=== PATIENT | female | born 1955 | race Caucasian/White ===

== ENCOUNTER 2019-05-27 01:15 | Day surgery (SDC) | payer MEDICARE, SELFPAY ==
[2019-05-22 14:14] VITALS: BMI 29.4
--- NOTE | 2019-05-27 09:21 | WPDANESEPPF ---
Anes - Initial Pre Proc Eval Procedure: Operation Date: 05/27/19 10:00 Proposed Procedures p Esophagogastroduodenoscopy - Kyle Steele MD Date/Time: 05/27/19 09:21 Surgeon: Kyle Steele MD Pre Op Diagnosis: Epigastric Pain Patient Data Age: 63 Gender: F Height: 5 ft 2 in Weight: 73 kg Allergies Allergy/AdvReac Type Severity Reaction Status Date / Time No Known Drug Allergies Allergy Unknown Verified 05/27/19 08:58 Home Medications Medication Instructions Recorded Confirmed Type acetaminophen-codeine 1 tablet PO PRN PRN 05/22/19 05/22/19 History betamethasone, augmented 1 applic TOPICAL DAILY 05/22/19 05/22/19 History celecoxib 100 mg PO DAILY 05/22/19 05/27/19 History cyclobenzaprine 5 mg PO DAILY 05/22/19 05/27/19 History famotidine 20 mg PO DAILY 05/22/19 05/27/19 History gabapentin 300 mg PO BID 05/22/19 05/27/19 History methocarbamol 750 mg PO PRN 05/22/19 05/22/19 History metoprolol tartrate 25 mg PO DAILY 05/22/19 05/27/19 History montelukast 10 mg PO DAILY 05/22/19 05/27/19 History nortriptyline 25 mg PO DAILY 05/22/19 05/27/19 History pantoprazole 40 mg PO BID 05/22/19 05/27/19 History pravastatin 20 mg PO DAILY 05/22/19 05/27/19 History spironolacton-hydrochlorothiaz 1 tablet PO DAILY 05/22/19 05/27/19 History Patient hx anesthesia problems: none Family hx anesthesia problems: none [facility] Past Medical History Medical History (Updated 05/27/19 @ 09:21 by Tommy aMrie MD) Anxiety CAD (coronary artery disease) CVA (cerebral vascular accident) Depression GERD (gastroesophageal reflux disease) Hyperlipidemia Hypertension IKER (obstructive sleep apnea) Anes - Eval Final PreProcedure Day of Procedure 05/27/19 09:21 Patient weight: overweight Heart: regular rate and rhythm Lungs: clear to auscultation Airway: Mallampati scale class III Neurological: alert and oriented Last oral intake: >/= 8 hours ASA classification: III Emergent: no Anesthetic plan: proceed Anesthesia type and monitoring: general GIVS and standard monitoring Informed Consent: The patient's anesthetic plan and its attendant risks and benefits were discussed with the patient/family/POA. Questions were solicited and answers provided to the satisfaction of the patient/family/POA.
[2019-05-27] MEDS: LACTATED RINGERS 1,000 ML 150 ML IV CONT ×2 (09:32→10:39)
[2019-05-27 09:34] VITALS: BP 129/60; PULSE 87; RESP 16; TEMP 36.1; O2SAT 99; BMI 29.6
--- NOTE | 2019-05-27 10:25 | P.CONGI_ITS ---
Assessment and Plan Additional Plan This is a 63-year-old white female patient seen in evaluation at the request of Dr. Chang. Patient complains of epigastric pain and heartburn. She notes pain predominantly in the epigastric area. Pain appears to worsen after eating. Described as heartburn. She states she was on Celebrex until about 2 weeks ago. She states the pain is typically worse after eating. Pain appears to improve on taking Pepto-Bismol. She also takes Protonix 40 mg p.o. daily for some time now. Past medical history is significant for CLL. She is also history of hypertension. Medications include spironolactone. Hydrochlorothiazide. Montelukast. Metoprolol. Escitalopram. Celecoxib. She has no stated drug allergies. Family history is noncontributory. Physical exam reveals her to be alert. Oriented x3. HEENT exam unremarkable. Lungs are clear to auscultation and to percussion. Heart is without murmur or extra sounds . Abdominal exam bowel sounds are present soft nontender with no hepatosplenomegaly. Digital external rectal exam normal. Impression 1. Epigastric pain. Suspicious for dyspepsia. Plan is to continue proton pump inhibitor. An EGD will be performed 2. CLL. This is chronic. No recent exacerbation noted. Patient is concerned because it was diagnosis after similar pain was a describes several years ago. 3. Hypertension. Plan is to continue proton pump inhibitor. Pepto-Bismol will be allowed. An EGD will be performed. GI Consult Note Consult date/time: 05/27/19 10:25 HPI: Nohemi Cornelius is a 63 year old female [facility] Past Medical History Medical History (Updated 05/27/19 @ 09:21 by Tommy Marie MD) Anxiety CAD (coronary artery disease) CVA (cerebral vascular accident) Depression GERD (gastroesophageal reflux disease) Hyperlipidemia Hypertension IKER (obstructive sleep apnea) Meds Home Medications and Allergies Home Medications Medication Instructions Recorded Confirmed Type acetaminophen-codeine 1 tablet PO PRN PRN 05/22/19 05/22/19 History betamethasone, augmented 1 applic TOPICAL DAILY 05/22/19 05/22/19 History celecoxib 100 mg PO DAILY 05/22/19 05/27/19 History cyclobenzaprine 5 mg PO DAILY 05/22/19 05/27/19 History famotidine 20 mg PO DAILY 05/22/19 05/27/19 History gabapentin 300 mg PO BID 05/22/19 05/27/19 History methocarbamol 750 mg PO PRN 05/22/19 05/22/19 History metoprolol tartrate 25 mg PO DAILY 05/22/19 05/27/19 History montelukast 10 mg PO DAILY 05/22/19 05/27/19 History nortriptyline 25 mg PO DAILY 05/22/19 05/27/19 History pantoprazole 40 mg PO BID 05/22/19 05/27/19 History pravastatin 20 mg PO DAILY 05/22/19 05/27/19 History spironolacton-hydrochlorothiaz 1 tablet PO DAILY 05/22/19 05/27/19 History Allergies Allergy/AdvReac Type Severity Reaction Status Date / Time No Known Drug Allergies Allergy Unknown Verified 05/27/19 08:58 Vital Signs Vital Signs - 24 hr 05/27/19 09:34 Temperature 36.1 C L Pulse Rate 87 Respiratory Rate 16 Blood Pressure 129/60 Pulse Oximetry 99
[2019-05-27 11:05] VITALS: BP 138/64; PULSE 85; RESP 23; O2SAT 100
[2019-05-27 11:15] VITALS: BP 153/72; PULSE 83; RESP 18; O2SAT 100
[2019-05-27 11:25] VITALS: BP 168/71; PULSE 83; RESP 21; O2SAT 100
== END 2019-05-27 11:44 | disposition home or self-care (01) ==
PROVIDERS: PCP Internal Medicine; Visit Provider Internal Medicine Gastroenterology
PROC: 0DJ08ZZ Inspection of Upper Intestinal Tract, Via Natural or Artificial Opening Endoscopic (ICD-10-PCS; CPT 43235; principal; 2019-05-27 10:00)
DX: T18.128A Food in esophagus causing other injury, initial encounter (principal); K21.9 Gastro-esophageal reflux disease without esophagitis; I10 Essential (primary) hypertension; C91.10 Chronic lymphocytic leukemia of B-cell type not having achieved remission; I25.10 Atherosclerotic heart disease of native coronary artery without angina pectoris; E78.5 Hyperlipidemia, unspecified; G47.33 Obstructive sleep apnea (adult) (pediatric); F41.8 Other specified anxiety disorders; Z86.73 Personal history of transient ischemic attack (TIA), and cerebral infarction without residual deficits
CPT/HCPCS: 43235; J2704; J7120

== ENCOUNTER 2019-06-03 10:17 | Outpatient (CLI) | payer MEDICARE, SELFPAY ==
[2019-06-03 10:33] LABS: Hemoglobin 11.6 g/dL (12.0-15.0); Mean Corpuscular HGB Conc 33.1 g/dL (32.0-36.0); Mean Corpuscular Hemoglobin 33.2 pg (27.0-31.0); Mean Corpuscular Volume 100.3 fL (78.0-102.0); Mean Platelet Volume 9.2 fl (9.2-11.8); Platelet Count Result 180 K/mm3 (150-420); Red Blood Count 3.49 M/mm3 (4.20-5.40); Red Cell Distribution Width 12.7 % (11.6-14.4); White Blood Count 9.8 K/mm3 (4.8-10.8)
[2019-06-03 11:17] LABS: Band Neutrophils Percent 0 % (0-6); Basophils Percent Manual 0 % (0-1); Eosinophils Percent Manual 0 % (1-6); Lymphocytes Absolute Manual 8.91 K/mm3 (1.1-4.5); Lymphocytes Percent Manual 91 % (18-44); Monocytes Absolute Manual 0.09 K/mm3 (0.1-0.90); Monocytes Percent Manual 1 % (3-9); Neutrophils Absolute Manual 0.78 K/mm3 (1.7-7.2); Neutrophils Percent Manual 8 % (46-73); Total Cells Counted 100
[2019-06-03 11:18] LABS: Platelet Estimate Adequate (Adequate)
[2019-06-03 11:41] LABS: Alanine Aminotransferase 13 U/L (14-59); Albumin Level 3.6 g/dL (3.4-5.0); Alkaline Phosphatase 56 U/L (46-116); Anion Gap 12.1 mmol/L (7-16); Aspartate Amino Transferase 11 U/L (15-37); Bilirubin,Total 0.2 mg/dL (0.00-1.00); Blood Urea Nitrogen 15 mg/dL (7-18); Calcium 8.8 mg/dL (8.5-10.1); Carbon Dioxide 32 mmol/L (21-32); Chloride 105 mmol/L (98-108); Cholesterol 174 mg/dL (0-200); Estimated Glomerular Filt Rate 56; Glucose 93 mg/dL (70-99); HDL Direct 38 mg/dL (40-60); LDL Cholesterol Calculated 119 mg/dL (<130); Osmolality Calculated 300 mOsm/kg (285-295); Potassium 4.1 mmol/L (3.5-5.1); Sodium 145 mmol/L (136-145); Thyroid Stimulating Hormone 1.65 uIU/mL (0.36-3.74); Total Protein 6.5 g/dL (6.4-8.2); Triglycerides 87 mg/dL (0-150)
[2019-06-05 11:28] LABS: Bilirubin Urine Negative (Negative); Blood Urine Negative (Negative); Color Urine Yellow (Yellow); Glucose Urine UA Negative (Negative); Ketones Urine Negative (Negative); Leukocyte Esterase Ur Negative LEU/UL (Negative); Nitrate Urine Negative (Negative); Protein Urine Negative (Negative); Specific Grav Ur 1.025 (1.010-1.020)
[2019-06-05 11:33] LABS: Add Urine Microscopic? NO; Appearance Urine Clear (Clear)
== END 2019-06-03 10:18 | disposition home or self-care (01) ==
LOC: CHSLAB 10:20
PROVIDERS: PCP Internal Medicine; Visit Provider Internal Medicine
DX: E78.5 Hyperlipidemia, unspecified (principal); I10 Essential (primary) hypertension; D64.9 Anemia, unspecified; Z98.84 Bariatric surgery status
CPT/HCPCS: 36415; 80053; 80061; 81003; 84443; 85025

== ENCOUNTER 2020-07-13 14:30 | Outpatient (CLI) | payer MEDICARE, SELFPAY ==
[2020-07-13 14:44] LABS: Hematocrit 35.9 % (35.0-42.0); Hemoglobin 11.9 g/dL (11.7-13.8); Immature Platelet Fraction Pct 5.4 % (1.0-7.0); Mean Corpuscular HGB Conc 33.1 g/dL (32.0-36.0); Mean Corpuscular Hemoglobin 32.1 pg (27.0-31.0); Mean Corpuscular Volume 96.8 fL (78.0-102.0); Mean Platelet Volume 10.3 fl (9.2-11.8); Platelet Count Result 71 K/mm3 (150-420); Red Blood Count 3.71 M/mm3 (4.20-5.40); Red Cell Distribution Width 13.7 % (11.6-14.4); White Blood Count 2.4 K/mm3 (4.8-10.8)
[2020-07-13 14:56] LABS: D Dimer 0.46 mg/L (0.19-0.50)
[2020-07-13 15:06] LABS: BNP < 5 pg/mL (0-100)
[2020-07-13 15:26] LABS: Alanine Aminotransferase 30 U/L (14-59); Albumin Level 3.7 g/dL (3.4-5.0); Alkaline Phosphatase 73 U/L (46-116); Anion Gap 5 mmol/L (8-16); Aspartate Amino Transferase 21 U/L (15-37); Bilirubin,Total 0.6 mg/dL (0.00-1.00); Blood Urea Nitrogen 25 mg/dL (7-18); Carbon Dioxide 31 mmol/L (21-32); Chloride 99 mmol/L (98-108); Creatine Kinase 76 U/L (26-192); Estimated Glomerular Filt Rate 36; Glucose 82 mg/dL (70-99); Osmolality Calculated 283 mOsm/kg (285-295); Potassium 4.2 mmol/L (3.5-5.1); Sodium 135 mmol/L (136-145); Thyroid Stimulating Hormone 3.12 uIU/mL (0.36-3.74); Total Protein 6.7 g/dL (6.4-8.2); Troponin I 13.5 ng/L (0.00-60.4)
[2020-07-13 16:01] LABS: Band Neutrophils Percent 0 % (0-6); Lymphocytes Absolute Manual 0.36 K/mm3 (1.1-4.5); Lymphocytes Percent Manual 15 % (18-44); Neutrophils Percent Manual 46 % (46-73); Total Cells Counted 100
[2020-07-13 16:02] LABS: Basophils Percent Manual 0 % (0-1); Eosinophils Absolute Manual 0.02 K/mm3 (0.02-0.5); Eosinophils Percent Manual 1 % (1-6); Monocytes Absolute Manual 0.91 K/mm3 (0.1-0.90); Monocytes Percent Manual 38 % (3-9); Platelet Estimate Decreased (Adequate)
== END 2020-07-13 14:31 | disposition home or self-care (01) ==
LOC: CHSLAB 14:32
PROVIDERS: PCP Internal Medicine; Visit Provider Internal Medicine
DX: R06.00 Dyspnea, unspecified (principal)
CPT/HCPCS: 36415; 80053; 82550; 82553; 83880; 84443; 84484; 85025; 85055; 85380

== ENCOUNTER 2020-07-19 10:11 | Outpatient (CLI) | payer MEDICARE, SELFPAY | END 2020-07-19 10:12 | disposition home or self-care (01) | LOC: CHSCARD 10:13 | PROVIDERS: PCP Internal Medicine; Visit Provider Internal Medicine | DX: R06.02 Shortness of breath (principal); I10 Essential (primary) hypertension | CPT/HCPCS: 94060; 94726; 94729 ==

== ENCOUNTER 2020-08-27 11:53 | Emergency (ER) | payer MEDICARE, SELFPAY ==
--- NOTE | ~2020-08-27 | CT_ITS ---
EXAMINATION: CT brain wo con EXAM DATE: 08/27/2020 13:30 INDICATION: Syncope dizziness and blurred vision x1wk. Dizziness, blurred vision, symptoms one week. Hand and foot paresthesias. TECHNIQUE: Spiral CT of the head was performed without contrast. Axial, coronal and sagittal images were reviewed. The dose-length product (DLP) for this examination was 529.67 mGy-cm. The exposure w as tailored according to patient size, and iterative reconstruction (ASIR) was used as additional dos e reduction technique. There is no prior study for comparison. FINDINGS: There is no acute intraparenchymal hemorrhage. No evidence of intraparenchymal brain mass lesion. No evidence of acute infarction. Please note that initial head CT has limited sensitivity f or small or acute infarctions. Right-sided choroidal fissure cyst. There is mild periventricular an d subcortical hypodensity, nonspecific but probably related to small vessel ischemic disease. There is mild prominence of the sulci and ventricles related to cerebral atrophy. There is intracranial carotid arteriosclerosis. There are no extra-axial collections. There is no mass effect or midline shift. The orbits are unremarkable. Soft tissue is unremarkable. The visualized sinuses and mastoi d air cells are well aerated. IMPRESSION: 1. No acute intracranial findings. 2. Chronic age related findings. Reviewed, dictated and finalized at location A.
[2020-08-27 12:10] VITALS: BP 155/64; PULSE 91; RESP 13; TEMP 36.8; O2SAT 98
--- NOTE | 2020-08-27 12:21 | ECG_ITS ---
Measurements Intervals [place] Rate: 88 P: 60 NV: 178 QRS: 11 QRSD: 97 T: 16 QT: 402 QTc: 488 Interpretive Statements SINUS RHYTHM BORDERLINE ST ABNORMALITY- ANTEROLAT/INF LEADS BASELINE ARTIFACT- I, II, III BORDERLINE ECG Electronically Signed On 08-27-2020 13:11:16 CDT by Devyn Osorio D.O.
[2020-08-27 13:13] LABS: Add Urine Microscopic? YES; Appearance Urine Clear (Clear); Bilirubin Urine Negative (Negative); Blood Urine Negative (Negative); Color Urine Yellow (Yellow); Glucose Urine UA Negative (Negative); Hematocrit 33.1 % (35.0-42.0); Hemoglobin 11.5 g/dL (11.7-13.8); Ketones Urine Trace (Negative); Leukocyte Esterase Ur Negative LEU/UL (Negative); Mean Corpuscular HGB Conc 34.7 g/dL (32.0-36.0); Mean Corpuscular Hemoglobin 32.9 pg (27.0-31.0); Mean Corpuscular Volume 94.6 fL (78.0-102.0); Mean Platelet Volume 10.4 fl (9.2-11.8); Nitrate Urine Negative (Negative); Platelet Count Result 101 K/mm3 (150-420); Protein Urine Negative (Negative); Red Cell Distribution Width 13.8 % (11.6-14.4); Urobilinogen Urine 0.2 mg/dL (0.2-1.0); White Blood Count 2.1 K/mm3 (4.8-10.8)
[2020-08-27 13:17] LABS: Bacteria Urine Trace /hpf; RBC Urine None seen /hpf (0-2); Squamous Epithelial Cell Urine Few /hpf (Few); WBC Urine 0-3 /hpf (0-3)
[2020-08-27 13:26] LABS: Partial Thromboplastin Time 25.2 SEC (23.90-30.70); Prothrombin Time 10.8 Seconds (9.50-12.10)
[2020-08-27 13:32] LABS: Band Neutrophils Percent 0 % (0-6); Lymphocytes Absolute Manual 0.63 K/mm3 (1.1-4.5); Lymphocytes Percent Manual 30 % (18-44); Monocytes Absolute Manual 0.56 K/mm3 (0.1-0.90); Monocytes Percent Manual 27 % (3-9); Myelocytes Percent 1 %; Neutrophils Absolute Manual 0.88 K/mm3 (1.7-7.2); Neutrophils Percent Manual 42 % (46-73); Platelet Estimate Adequate (Adequate); Total Cells Counted 100
[2020-08-27 13:42] LABS: Alanine Aminotransferase 24 U/L (14-59); Albumin Level 3.6 g/dL (3.4-5.0); Alkaline Phosphatase 82 U/L (46-116); Anion Gap 8 mmol/L (8-16); Aspartate Amino Transferase 18 U/L (15-37); Bilirubin,Total 0.7 mg/dL (0.00-1.00); Blood Urea Nitrogen 8 mg/dL (7-18); Carbon Dioxide 29 mmol/L (21-32); Chloride 103 mmol/L (98-108); Estimated Glomerular Filt Rate 51; Glucose 90 mg/dL (70-99); Magnesium 1.5 mg/dL (1.8-2.4); NT Pro B Type Natriuretic Pept 23 pg/mL (0-125); Osmolality Calculated 288 mOsm/kg (285-295); Potassium 3.1 mmol/L (3.5-5.1); Sodium 140 mmol/L (136-145); Troponin I 15.9 ng/L (0.00-60.4)
--- NOTE | 2020-08-27 14:38 | PC.NURSE ---
DR MARYAN ACEVES CALLED FOR CONSULT [phone]
--- NOTE | 2020-08-27 14:50 | ED.DIZZY ---
HPI - Dizziness General Chief Complaint: Dizziness Stated Complaint: dizziness, weakness, blurred vision since sunday Source: patient Mode of arrival: ambulatory Limitations: no limitations History of Present Illness HPI Narrative: Pt has been on a small vacation with her family this week. She had been doing pretty well (although she has been having to adjust her daily doses of chemo agents) until sunday. SHe siad she began to notice that her vision seemed blurry and her legs seemed weak. She thought the left was worse than the right. She also has had increased falling and imbalance. SHe thought she might have had a stroke on sunday. She didnt see a physcian bc she was on vacation. She is also nauseated and hasnt felt like eating much. SHe said she just feels terrible. MD elicited complaint: lightheadedness (worse on standing up) Pertinent past history: other (CLL- under chemo treatment) Timing: sudden onset (4 days ago) Description: room spinning , lightheadedness, off-balance and difficulty walking Exacerbating factors: movement/ambulation Relieving factors: nothing Associated symptoms: nausea, malaise and weakness Associated neuro symptoms: limb numbness and limb weakness Related Data Home Medications Medication Instructions Recorded Confirmed acetaminophen-codeine 1 tablet PO PRN PRN 05/22/19 08/27/20 betamethasone, augmented 1 applic TOPICAL DAILY 05/22/19 08/27/20 celecoxib 100 mg PO DAILY 05/22/19 08/27/20 cyclobenzaprine 5 mg PO DAILY 05/22/19 08/27/20 famotidine 20 mg PO DAILY 05/22/19 08/27/20 gabapentin 300 mg PO BID 05/22/19 08/27/20 methocarbamol 750 mg PO PRN 05/22/19 08/27/20 metoprolol tartrate 25 mg PO DAILY 05/22/19 08/27/20 montelukast 10 mg PO DAILY 05/22/19 08/27/20 nortriptyline 25 mg PO DAILY 05/22/19 08/27/20 pantoprazole 40 mg PO BID 05/22/19 08/27/20 pravastatin 20 mg PO DAILY 05/22/19 08/27/20 spironolacton-hydrochlorothiaz 1 tablet PO DAILY 05/22/19 08/27/20 allopurinol 300 mg PO DAILY 08/27/20 08/27/20 escitalopram oxalate 20 mg PO DAILY 08/27/20 08/27/20 prochlorperazine maleate 10 mg PO PRN 08/27/20 08/27/20 propranolol 60 mg PO DAILY 08/27/20 08/27/20 sulfamethoxazole-trimethoprim 1 tablet PO DAILY 08/27/20 08/27/20 sumatriptan succinate 100 mg PO DAILY 08/27/20 08/27/20 tizanidine 2 mg PO DAILY 08/27/20 08/27/20 Allergies Allergy/AdvReac Type Severity Reaction Status Date / Time No Known Drug Allergies Allergy Unknown Verified 05/27/19 08:58 Review of Systems Review of Systems: All systems reviewed & are unremarkable except as noted in HPI and below Constitutional: Constitutional: Denies chills, Reports fatigue, Denies fever(s) and Reports weakness Eyes: Eyes: Reports no additional eye complaints ENT: Reports system reviewed and no additional complaints, except as documented and Reports dizziness Cardiovascular: Cardiovascular: Reports no additional cardiovascular complaints Respiratory: Respiratory: Reports no additional respiratory complaints Gastrointestinal: Gastrointestinal: Denies abdominal pain, Denies bloating, Denies constipation, Denies heartburn, Reports diarrhea, Reports nausea and Denies vomiting Genitourinary: Genitourinary: Reports no additional female genitourinary complaints Musculoskeletal: Musculoskeletal: Reports no additional musculoskeletal complaints Integumentary/Breasts: Skin/Breast: Reports system reviewed and no additional complaints, except as docu Neurologic: Denies confusion, Reports vertigo, Reports dizziness, Denies headache(s), Denies focal weakness, Reports numbness and Reports weakness Psychiatric: Psychiatric: Reports no additional psychiatric complaints Endocrine: Endocrine: Reports no additional endocrine complaints Hematologic/Lymphatic: Hematologic/Lymphatic: Reports no additional hematologic/lymphatic complaints Allergic/Immunologic: Allergic/Immunologic: Reports no additional allergic/immunologic complaints PMFSH Past Medical His
[2020-08-27 15:00] VITALS: BP 165/65; PULSE 85
[2020-08-27 15:02] VITALS: BP 168/69; PULSE 88
[2020-08-27 15:04] VITALS: BP 160/68; PULSE 94
[2020-08-27] MEDS: MAGNESIUM SULF 2 GM/WATER 50ML 2 GM/50 ML BAG IVPB (15:05)
[2020-08-27] MEDS: POTASSIUM CHLORIDE 20 MEQ TABLET 40 MEQ PO (15:11)
[2020-08-27 15:56] VITALS: BP 166/71; PULSE 80; RESP 14; O2SAT 99
== END 2020-08-27 15:57 | disposition home or self-care (01) ==
LOC: CHSED 11:55
PROVIDERS: Emergency Provider Emergency Medicine; PCP Internal Medicine
DX: R53.1 Weakness (principal); T50.905A Adverse effect of unspecified drugs, medicaments and biological substances, initial encounter; I25.10 Atherosclerotic heart disease of native coronary artery without angina pectoris; K21.9 Gastro-esophageal reflux disease without esophagitis; E78.5 Hyperlipidemia, unspecified; I10 Essential (primary) hypertension
CPT/HCPCS: 36415; 70450; 80053; 81001; 83735; 83880; 84484; 85025; 85610; 85730; 93005; 96365; 99283; 99284; A9270; J3475

== ENCOUNTER 2021-01-15 14:04 | Emergency (ER) | payer MEDICARE, SELFPAY ==
--- NOTE | ~2021-01-15 | XR_ITS ---
EXAMINATION: XR chest 1V portable DATE: 01/15/2021 15:11 INDICATION: Shortness of breath TECHNIQUE: frontal view of the chest was obtained. COMPARISON: Chest radiograph dated 10/17/2016 FINDINGS: Right internal jugular central venous port catheter with distal tip at the caudal superior vena cava. Adjustable gastric banding procedure at the epigastric region. Cholecystectomy clips in right upper quadrant. Lungs remain clear with no focal airspace opacities, pulmonary edema, pleural effusion or pneumothora x. The cardiomediastinal silhouette is normal with small left pericardial fat pad. Visualized bones a nd soft tissues are unremarkable. IMPRESSION: 1. No acute cardiopulmonary disease. Reviewed, dictated and finalized at location A.
[2021-01-15 14:22] VITALS: BP 157/65; PULSE 82; RESP 16; TEMP 39.1; O2SAT 99
[2021-01-15] MEDS: SODIUM CHLORIDE 0.9% IV 1,000 ML 999 ML IV CONT (14:35)
[2021-01-15] MEDS: ONDANSETRON INJ 4 MG/2 ML VIAL IV PUSH (14:36)
[2021-01-15] MEDS: ACETAMINOPHEN 500 MG TABLET 1000 MG PO (14:57)
[2021-01-15 15:02] LABS: Hematocrit 32.2 % (35.0-42.0); Hemoglobin 10.6 g/dL (11.7-13.8); Mean Corpuscular HGB Conc 32.9 g/dL (32.0-36.0); Mean Corpuscular Hemoglobin 31.6 pg (27.0-31.0); Mean Corpuscular Volume 96.1 fL (78.0-102.0); Mean Platelet Volume 10.1 fl (9.2-11.8); Platelet Count Result 67 K/mm3 (150-420); Red Blood Count 3.35 M/mm3 (4.20-5.40); Red Cell Distribution Width 14.1 % (11.6-14.4); White Blood Count 3.5 K/mm3 (4.8-10.8)
[2021-01-15 15:14] LABS: Influenza Control Valid (Valid)
[2021-01-15 15:19] LABS: Alanine Aminotransferase 24 U/L (14-59); Albumin Level 2.9 g/dL (3.4-5.0); Alkaline Phosphatase 126 U/L (46-116); Anion Gap 10 mmol/L (8-16); Aspartate Amino Transferase 16 U/L (15-37); Bilirubin,Total 0.7 mg/dL (0.00-1.00); Blood Urea Nitrogen 11 mg/dL (7-18); Calcium 8.3 mg/dL (8.5-10.1); Carbon Dioxide 28 mmol/L (21-32); Chloride 101 mmol/L (98-108); Estimated CRCL calculation 44 ml/min; Estimated Glomerular Filt Rate 51; Glucose 90 mg/dL (70-99); Osmolality Calculated 287 mOsm/kg (285-295); Potassium 3.7 mmol/L (3.5-5.1); Sodium 139 mmol/L (136-145); Total Protein 6.1 g/dL (6.4-8.2)
[2021-01-15 15:20] LABS: SARS-CoV-2 RNA PCR Negative (Negative)
[2021-01-15 15:22] LABS: Lactic Acid Reflex 1.1 mmol/L (0.4-2.0)
[2021-01-15 15:34] LABS: Platelet Estimate Decreased (Adequate); Total Cells Counted 100
[2021-01-15 15:35] LABS: Band Neutrophils Percent 0 % (0-6); Basophils Percent Manual 0 % (0-1); Eosinophils Absolute Manual 0.07 K/mm3 (0.02-0.5); Eosinophils Percent Manual 2 % (1-6); Lymphocytes Absolute Manual 0.42 K/mm3 (1.1-4.5); Lymphocytes Percent Manual 12 % (18-44); Monocytes Absolute Manual 0.63 K/mm3 (0.1-0.90); Monocytes Percent Manual 18 % (3-9); Neutrophils Absolute Manual 2.38 K/mm3 (1.7-7.2); Neutrophils Percent Manual 68 % (46-73)
[2021-01-15 15:45] VITALS: BP 153/58; PULSE 85; RESP 16; TEMP 38.3; O2SAT 97
--- NOTE | 2021-01-15 15:47 | PC.NURSE ---
UA obtained and taken to lab.
[2021-01-15 15:48] LABS: Add Urine Microscopic? YES; Appearance Urine Clear (Clear); Bilirubin Urine 1+ (Negative); Blood Urine 3+ (Negative); Color Urine Light Yellow (Yellow); Glucose Urine UA Negative (Negative); Ketones Urine Negative (Negative); Leukocyte Esterase Ur 3+ (Negative); Nitrate Urine Positive (Negative); Protein Urine 1+ (Negative); Specific Grav Ur 1.015 (1.010-1.020)
[2021-01-15 15:53] LABS: Bacteria Urine 1+ /hpf; Squamous Epithelial Cell Urine Few /hpf (Few); WBC Urine 31-50 /hpf (0-3)
--- NOTE | 2021-01-15 16:00 | ED.FEVER ---
HPI - Fever General Chief Complaint: Fever Stated Complaint: fever, chills, nausea, abd pain Source: patient and family History of Present Illness HPI Narrative: this is a 65-year-old female with a history of CLL is some being seen at the [facility] in [place], presents with fever with some slight nausea with no vomiting, has a history of hypertension but pressure is relatively stable O2 sats are stable her current vitals are stable the patient has no chest pain mild shortness of breath with no cough no audible wheezing no diarrhea constipation no abdominal pain. MD elicited complaint: fever Onset (ago): day(s) Measured temperature: 102 C Related Data Home Medications Medication Instructions Recorded Confirmed acetaminophen-codeine 1 tablet PO PRN PRN 05/22/19 08/27/20 betamethasone, augmented 1 applic TOPICAL DAILY 05/22/19 08/27/20 celecoxib 100 mg PO DAILY 05/22/19 08/27/20 cyclobenzaprine 5 mg PO DAILY 05/22/19 08/27/20 famotidine 20 mg PO DAILY 05/22/19 08/27/20 gabapentin 300 mg PO BID 05/22/19 08/27/20 methocarbamol 750 mg PO PRN 05/22/19 08/27/20 metoprolol tartrate 25 mg PO DAILY 05/22/19 08/27/20 montelukast 10 mg PO DAILY 05/22/19 08/27/20 nortriptyline 25 mg PO DAILY 05/22/19 08/27/20 pantoprazole 40 mg PO BID 05/22/19 08/27/20 pravastatin 20 mg PO DAILY 05/22/19 08/27/20 spironolacton-hydrochlorothiaz 1 tablet PO DAILY 05/22/19 08/27/20 allopurinol 300 mg PO DAILY 08/27/20 08/27/20 escitalopram oxalate 20 mg PO DAILY 08/27/20 08/27/20 prochlorperazine maleate 10 mg PO PRN 08/27/20 08/27/20 propranolol 60 mg PO DAILY 08/27/20 08/27/20 sulfamethoxazole-trimethoprim 1 tablet PO DAILY 08/27/20 08/27/20 sumatriptan succinate 100 mg PO DAILY 08/27/20 08/27/20 tizanidine 2 mg PO DAILY 08/27/20 08/27/20 Allergies Allergy/AdvReac Type Severity Reaction Status Date / Time No Known Drug Allergies Allergy Unknown NKA Verified 01/15/21 14:20 Review of Systems Review of Systems: All systems reviewed & are unremarkable except as noted in HPI and below PMFSH Past Medical History Medical History Anxiety CAD (coronary artery disease) CVA (cerebral vascular accident) Depression GERD (gastroesophageal reflux disease) Hyperlipidemia Hypertension IKER (obstructive sleep apnea) Social History Social History Smoking packs per day: 0 Smoking cigarettes per day: 0.0 Smoking status: Unknown if ever smoked Alcohol intake: never Substance use: never Gender identity (if verbalized by the patient): Female Exam Const: General: no acute distress and alert Orientation/consciousness: patient oriented x3 HENMT: Head: normal to inspection Eyes: Conjunctivae: conjunctivae normal Pupils: Equal, round and reactive pupils present EOM: EOMs intact bilaterally Neck: Neck: normal visual inspection Chest: Chest palpation & inspection: normal inspection of the chest Resp: Effort & Inspection: normal respiratory effort Auscultation: clear to auscultation bilaterally Cardio: Rate: regular rate Rhythm: regular rhythm GI: GI Palp: Yes Soft to palpation : General: Yes no CVA tenderness Urinary Catheter: Urinary Catheter: patent and draining Back/Spine/Pelvis: Back: no CVA tenderness Skin: General skin exam: normal color Rashes: no rashes Neuro: General: patient oriented x3 and moves all extremities Psych: Mental Status: mental status grossly normal 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 Vital Signs Vital signs: Vital Signs Temperature 39.1 C H 01/15/21 14:22 Pulse Rate 82 01/15/21 14:22 Respiratory Rate 16 01/15/21 14:22 Blood Pressure 157/65
[2021-01-15 16:45] VITALS: BP 144/55; PULSE 80; RESP 16; TEMP 37.5; O2SAT 96
== END 2021-01-15 16:50 | disposition home or self-care (01) ==
PROVIDERS: Emergency Provider Emergency Medicine; PCP Internal Medicine
DX: N30.00 Acute cystitis without hematuria (principal); Z20.822 Contact with and (suspected) exposure to COVID-19; I25.10 Atherosclerotic heart disease of native coronary artery without angina pectoris; Z86.73 Personal history of transient ischemic attack (TIA), and cerebral infarction without residual deficits; K21.9 Gastro-esophageal reflux disease without esophagitis; E78.5 Hyperlipidemia, unspecified; I10 Essential (primary) hypertension
CPT/HCPCS: 36415; 71045; 80053; 81001; 83605; 85025; 87040; 87147; 87186; 87804; 96361; 96365; 96375; 99283; 99284; C9803; J0696; J2405; J7030; U0003; U0005

== ENCOUNTER 2021-03-23 10:13 | Outpatient (CLI) | payer MEDICARE, SELFPAY ==
--- NOTE | ~2021-03-23 | MM_ITS ---
EXAMINATION: MM screening [place] BI w liliam HISTORY: Screening mammogram TECHNIQUE: Craniocaudal and mediolateral oblique 3-D tomosynthesis images were obtained and synthetic 2-D images were generated. CAD analysis was submitted and interpreted. COMPARISON: 08/25/2018, 05/07/2017, 03/08/2016 bilateral screening mammogram examinations BREAST PARENCHYMAL COMPOSITION: There are scattered areas of fibroglandular density. FINDINGS: Stable mild fibroglandular asymmetry and scattered bilateral benign calcifications. There i s no evidence of suspicious mass, calcification, or architectural distortion to suggest malignancy in either breast. There has been no suspicious interval change. IMPRESSION: 1. No mammographic evidence of malignancy. 2. Recommend routine screening mammography in one year. BI-RADS Category 2: Benign finding(s). Reviewed, dictated and finalized at location A. 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
--- NOTE | ~2021-03-23 | DEXA_ITS ---
Bone Density Report Name: ALICIA ARGUELLO Age: 65 Sex: Female Ethnicity: White Date of : 1955 Indication: postmenopausal; screening for osteoporosis; parental hip fracture; prior fracture; cancer; asthma or emphysema; hysterectomy; Referring Provider: Oseas, Liliam Morejon Study: Bone densitometry was performed. Exam Date: March 23, 2021 Accession number: [id number] Bone Density: Region BMD T-score Z-score Classification AP Spine(L1-L4) 1.056 0.1 2.0 Normal Femoral Neck (Left) 0.699 -1.3 0.3 Osteopenia Total Hip (Left) 0.938 0.0 1.3 Normal Femoral Neck (Right) 0.675 -1.6 0.0 Osteopenia Total Hip (Right) 0.863 -0.6 0.7 Normal Femoral Neck Mean 0.687 -1.5 0.1 Osteopenia Total Hip Mean 0.901 -0.3 1.0 Normal World Health Organization criteria for BMD impression classify patients as: Normal (T-score at or above -1.0), Osteopenia (T-score between -1.0 and -2.5), or Osteoporosis (T-score at or below -2.5). 10-year Fracture Risk(1): Major Osteoporotic Fracture 25% Hip Fracture 2.3% Reported Risk Factors: [place] (), Neck BMD=0.675, BMI=31.1, previous fracture, parental fracture (1) FRAX(R) Version 3.08. Fracture probability calculated for an untreated patient. Fracture probability may be lower if the patient has received treatment. Clinical Information Provided by Patient: Has had a low trauma fracture Parent has had a hip fracture Has used the following medications: Vitamin D, Calcium Has the following medical conditions: Asthma or Emphysema, Cancer, Hysterectomy Patient maximum height was 62 No regular weight bearing exercise Does not regularly consume dairy products Drinks caffeinated beverages Onset of menses at age 11 Number of children 0 Impression: The patient has low bone mass, based on the Right Femoral Neck T-score. The patient has risk factors, including: parental hip fracture, previous fracture. Discussion: BONE DENSITY IS LOW AT ONE OR MORE SKELETAL SITES. This patient's lowest T-score is low at one or more skeletal sites. It meets the World Health Organization's (WHO) criteria for ?low bone mass? (T-score between -1.0 and -2.5). The patient's 10-year risk of fracture as calculated by FRAX is less than the threshold where pharmacological therapy is recommended by the National Osteoporosis Foundation (NOF). However, all treatment decisions require clinical judgment and consideration of individual patient factors, including patient preferences, comorbidities, previous drug use, risk factors not captured in the FRAX model (e.g., frailty, falls, vitamin D deficiency, increased bone turnover, interval significant decline in bone density) and possible under or overestimation of fracture risk by FRAX. The patient should follow a healthful
== END 2021-03-23 10:14 | disposition home or self-care (01) ==
LOC: CHSIMG 10:14
PROVIDERS: PCP Internal Medicine; Visit Provider Nurse Practitioner Family
DX: Z12.31 Encounter for screening mammogram for malignant neoplasm of breast (principal); Z78.0 Asymptomatic menopausal state
CPT/HCPCS: 77063; 77067; 77080

== ENCOUNTER 2021-03-28 12:01 | Outpatient (CLI) | payer MEDICARE, SELFPAY ==
[2021-03-28 12:50] LABS: Occult Blood Negative (Negative)
[2021-03-28 12:50] LABS: Occult Blood Negative (Negative)
[2021-03-28 12:50] LABS: Occult Blood Negative (Negative)
== END 2021-03-28 12:02 | disposition home or self-care (01) ==
LOC: CHSLAB 12:04
PROVIDERS: PCP Internal Medicine; Visit Provider Nurse Practitioner Family
DX: R19.5 Other fecal abnormalities (principal)
CPT/HCPCS: 82272

== ENCOUNTER 2021-04-10 07:15 | Emergency (ER) | payer MEDICARE, SELFPAY ==
[2021-04-10 07:39] VITALS: BP 151/60; PULSE 88; RESP 18; TEMP 36.1; O2SAT 96
--- NOTE | 2021-04-10 07:47 | ED.GENADULT ---
HPI - General Adult General Chief complaint: Neck Pain/Injury Stated complaint: pain back of knees, neck, hands, head Source: patient and RN notes reviewed Mode of arrival: ambulatory Limitations: no limitations History of Present Illness HPI narrative: Patient states that she has been having neck pain multiple joint pain for the last 3 days. She went to see her doctor yesterday who restarted her Flexeril. She is already on gabapentin. She says the pain just getting worse. She says she has had some chills no fever that she notes. No other symptoms. MD complaint: Body aches, neck pain Onset (ago): day(s) (3) Location: neck, upper extremity and lower extremity Radiation: non-radiation Severity: moderate Quality: aching, dull and constant Relieving factors: none Exacerbating factors: movement Associated symptoms: fever/chills (chills) Treatments prior to arrival: none Related Data Home Medications Medication Instructions Recorded Confirmed acetaminophen-codeine 1 tablet PO PRN PRN 05/22/19 08/27/20 betamethasone, augmented 1 applic TOPICAL DAILY 05/22/19 08/27/20 celecoxib 100 mg PO DAILY 05/22/19 04/10/21 gabapentin 300 mg PO BID 05/22/19 04/10/21 montelukast 10 mg PO DAILY 05/22/19 04/10/21 nortriptyline 25 mg PO DAILY 05/22/19 04/10/21 pantoprazole 40 mg PO BID 05/22/19 04/10/21 spironolacton-hydrochlorothiaz 1 tablet PO DAILY 05/22/19 08/27/20 escitalopram oxalate 20 mg PO DAILY 08/27/20 04/10/21 propranolol 60 mg PO DAILY 08/27/20 04/10/21 sulfamethoxazole-trimethoprim 1 tablet PO DAILY 08/27/20 04/10/21 tizanidine 2 mg PO DAILY 08/27/20 04/10/21 acyclovir 400 mg PO DAILY 04/10/21 04/10/21 cyclobenzaprine 10 mg PO DAILY 04/10/21 04/10/21 lidocaine-prilocaine 04/10/21 Allergies Allergy/AdvReac Type Severity Reaction Status Date / Time No Known Drug Allergies Allergy Unknown NKA Verified 04/10/21 07:43 Review of Systems Review of Systems: All systems reviewed & are unremarkable except as noted in HPI and below PMFSH Past Medical History Medical History Anxiety CAD (coronary artery disease) CVA (cerebral vascular accident) Depression GERD (gastroesophageal reflux disease) Hyperlipidemia Hypertension IKER (obstructive sleep apnea) Social History Social History Smoking packs per day: 0 Smoking cigarettes per day: 0.0 Smoking status: Unknown if ever smoked Alcohol intake: never Substance use: never Gender identity (if verbalized by the patient): Female Exam Const: General: healthy appearing, no acute distress and alert Nutritional Appearance: well nourished Orientation/consciousness: patient oriented x3 HENMT: Head: normal to inspection Ears: external ears normal Eyes: Conjunctivae: conjunctivae normal Pupils: Equal, round and reactive pupils present EOM: EOMs intact bilaterally Neck: Neck: normal visual inspection and no meningeal signs Resp: Effort & Inspection: normal respiratory effort Auscultation: clear to auscultation bilaterally Cardio: Rate: regular rate Rhythm: regular rhythm GI: GI Palp: Yes Soft to palpation and No Tenderness to palpation present (GI) Auscultation: normal bowel sounds Course Vital Signs Vital signs: Vital Signs Temperature 36.1 C L 04/10/21 07:39 Pulse Rate 88 04/10/21 07:39 Respiratory Rate 18 04/10/21 07:39 Blood Pressure 151/60 H 04/10/21 07:39 Pulse Oximetry 96 04/10/21 07:39 Temperature 36.1 C L 04/10/21 07:39 Pulse Rate 88 04/10/21 07:39 Respiratory Rate 18 04/10/21 07:39 Blood Pressure 151/60 H 04/10/21 07:39 Pulse Oximetry 96 04/10/21 07:39 Medical Decision Making Vital Signs Vital Signs: Vital Signs Temperature 36.1 C L 04/10/21 07:39 Pulse Rate 88 04/10/21 07:39 Respiratory Rate 18 04/10/21 07:39 Blood Pressure 151/60 H 04/10/21 07:39 Pulse Oximetry 96 04/10/21 07:39
[2021-04-10] MEDS: KETOROLAC (*BKC) 60 MG/2 ML VIAL IM (07:59)
[2021-04-10 08:43] LABS: Influenza A QL RT-PCR Negative (Negative); Influenza B QL RT-PCR Negative (Negative); SARS-CoV-2 RNA PCR Negative (Negative)
== END 2021-04-10 09:21 | disposition home or self-care (01) ==
PROVIDERS: Emergency Provider Emergency Medicine; PCP Internal Medicine
DX: M79.7 Fibromyalgia (principal); Z20.822 Contact with and (suspected) exposure to COVID-19
CPT/HCPCS: 87502; 96372; 99283; C9803; J1885; U0003; U0005

== ENCOUNTER 2021-06-09 09:36 | Outpatient (CLI) | payer MEDICARE, SELFPAY ==
[2021-06-09 09:57] LABS: Basophils Absolute Auto 0.02 K/mm3 (0.00-0.10); Basophils Percent Auto 0.4 % (0.0-1.0); Eosinophils Absolute Auto 0.08 K/mm3 (0.02-0.50); Eosinophils Percent Auto 1.8 % (1.0-6.0); Hematocrit 37.3 % (35.0-42.0); Hemoglobin 11.8 g/dL (11.7-13.8); Immature Granulocyte Absolute 0.06 K/mm3 (0.00-0.00); Immature Granulocyte Percent A 1.3 % (0.0-0.0); Lymphocytes Absolute Auto 0.96 K/mm3 (1.10-4.50); Lymphocytes Percent Auto 21.1 % (18.0-42.0); Mean Corpuscular HGB Conc 31.6 g/dL (32.0-36.0); Mean Corpuscular Hemoglobin 31.1 pg (27.0-31.0); Mean Corpuscular Volume 98.2 fL (78.0-102.0); Mean Platelet Volume 9.5 fl (9.2-11.8); Monocytes Absolute Auto 0.55 K/mm3 (0.10-0.90); Monocytes Percent Auto 12.1 % (2.0-11.0); Neutrophils Absolute Auto 2.9 K/mm3 (1.7-7.2); Neutrophils Percent Auto 63.3 % (50.0-70.0); Platelet Count Result 119 K/mm3 (150-420); Red Cell Distribution Width 13.8 % (11.6-14.4); White Blood Count 4.5 K/mm3 (4.8-10.8)
[2021-06-09 10:21] LABS: Add Urine Microscopic? YES; Appearance Urine Clear (Clear); Bilirubin Urine 1+ (Negative); Blood Urine Negative (Negative); Color Urine Yellow (Yellow); Glucose Urine UA Negative (Negative); Ketones Urine Negative (Negative); Leukocyte Esterase Ur Negative LEU/UL (Negative); Nitrate Urine Negative (Negative); Protein Urine Trace (Negative); Specific Grav Ur >= 1.030 (1.010-1.020); pH Urine 5.5 (5.0-8.0)
[2021-06-09 10:32] LABS: RBC Urine None seen /hpf (0-2)
[2021-06-09 10:33] LABS: Bacteria Urine Trace /hpf; Squamous Epithelial Cell Urine Few /hpf (Few); WBC Urine None seen /hpf (0-3)
[2021-06-09 11:49] LABS: Alanine Aminotransferase 15 U/L (14-59); Albumin Level 3.7 g/dL (3.4-5.0); Alkaline Phosphatase 94 U/L (46-116); Anion Gap 13 mmol/L (8-16); Aspartate Amino Transferase < 10 U/L (15-37); Bilirubin,Total 0.3 mg/dL (0.00-1.00); Blood Urea Nitrogen 13 mg/dL (7-18); Calcium 8.6 mg/dL (8.5-10.1); Carbon Dioxide 26 mmol/L (21-32); Chloride 107 mmol/L (98-108); Cholesterol 265 mg/dL (0-200); Estimated Glomerular Filt Rate 51; Free T4 Free Thyroxine 0.82 ng/dL (0.76-1.46); Glucose 98 mg/dL (70-99); HDL Direct 60 mg/dL (40-60); LDL Cholesterol Calculated 180 mg/dL (<130); Osmolality Calculated 302 mOsm/kg (285-295); Potassium 3.7 mmol/L (3.5-5.1); Sodium 146 mmol/L (136-145); Thyroid Stimulating Hormone 4.42 uIU/mL (0.36-3.74); Total Protein 5.9 g/dL (6.4-8.2); Triglycerides 127 mg/dL (0-150)
[2021-06-11 15:14] LABS: Vitamin D 25 Hydroxy 25 ng/mL (30-100)
== END 2021-06-09 09:37 | disposition home or self-care (01) ==
LOC: CHSLAB 09:40
PROVIDERS: PCP Internal Medicine; Visit Provider Nurse Practitioner Family
DX: C91.10 Chronic lymphocytic leukemia of B-cell type not having achieved remission (principal); K76.9 Liver disease, unspecified; E78.5 Hyperlipidemia, unspecified; F34.9 Persistent mood [affective] disorder, unspecified; E87.6 Hypokalemia; M85.859 Other specified disorders of bone density and structure, unspecified thigh
CPT/HCPCS: 36415; 80053; 80061; 81001; 82306; 84439; 84443; 85025

== ENCOUNTER 2021-09-13 13:34 | Outpatient (CLI) | payer MEDICARE, SELFPAY ==
--- NOTE | 2021-09-13 13:50 | PC.NURSE ---
Pt to room 211 amb with spouse. Plan of care explained. Consent signed. Pt without questions or complaints. Oriented to room. Call kay in reach. Reminded to call with needs.
[2021-09-13] MEDS: ACETAMINOPHEN 325 MG TABLET 650 MG PO (14:25)
[2021-09-13] MEDS: diphenhydrAMINE HCl CAP 25 MG CAPSULE PO (14:25)
[2021-09-13] MEDS: FAMOTIDINE 20 MG TABLET PO (14:26)
[2021-09-13] MEDS: BEBTELOVIMAB 175 MG/2 ML VIAL IV PUSH (14:26)
--- NOTE | 2021-09-13 14:59 | PC.NURSE ---
Pt tolerated medication well. Has no complaints. Discharged to home with spouse.
== END 2021-09-13 13:35 | disposition home or self-care (01) ==
LOC: CHSTREATRM 13:38
PROVIDERS: PCP Internal Medicine; Visit Provider Internal Medicine
DX: U07.1 COVID-19 (principal); I10 Essential (primary) hypertension
CPT/HCPCS: A9270; M0222; Q0222

== ENCOUNTER 2021-09-22 17:17 | Outpatient (CLI) | payer MEDICARE, SELFPAY ==
--- NOTE | ~2021-09-22 | XR_ITS ---
XR chest 2V DATE: 09/22/2021 17:36 INDICATION: Cough, shortness of breath TECHNIQUE: PA and lateral views COMPARISON: 01/15/2021 portable AP chest FINDINGS: Right Port-A-Cath catheter tip the right atrium. Normal heart size. Aortic arch calcificati on. No hilar or mediastinal enlargement. No pulmonary infiltrate or consolidation, pleural effusion or pulmonary vascular congestion or pneumo thorax. Lap band apparatus is noted. Status post cholecystectomy. No suspicious osteolytic or osteoblastic lesions. IMPRESSION: Right Port-A-Cath catheter in right atrium No active cardiopulmonary disease Lap band Status post cholecystectomy Reviewed, dictated and finalized at location A.
[2021-09-22 17:32] LABS: Basophils Absolute Auto 0.01 K/mm3 (0.00-0.10); Basophils Percent Auto 0.2 % (0.0-1.0); Eosinophils Absolute Auto 0.09 K/mm3 (0.02-0.50); Eosinophils Percent Auto 2.1 % (1.0-6.0); Hematocrit 35.8 % (35.0-42.0); Hemoglobin 11.8 g/dL (11.7-13.8); Immature Granulocyte Absolute 0.01 K/mm3 (0.00-0.00); Immature Granulocyte Percent A 0.2 % (0.0-0.0); Lymphocytes Absolute Auto 1.13 K/mm3 (1.10-4.50); Lymphocytes Percent Auto 26.8 % (18.0-42.0); Mean Corpuscular Hemoglobin 31.6 pg (27.0-31.0); Mean Platelet Volume 9.2 fl (9.2-11.8); Monocytes Absolute Auto 0.46 K/mm3 (0.10-0.90); Monocytes Percent Auto 10.9 % (2.0-11.0); Neutrophils Absolute Auto 2.5 K/mm3 (1.7-7.2); Neutrophils Percent Auto 59.8 % (50.0-70.0); Platelet Count Result 148 K/mm3 (150-420); Red Blood Count 3.73 M/mm3 (4.20-5.40); Red Cell Distribution Width 13.2 % (11.6-14.4); White Blood Count 4.2 K/mm3 (4.8-10.8)
[2021-09-22 17:52] LABS: Alanine Aminotransferase 17 U/L (14-59); Albumin Level 3.8 g/dL (3.4-5.0); Alkaline Phosphatase 112 U/L (46-116); Anion Gap 6 mmol/L (8-16); Aspartate Amino Transferase 13 U/L (15-37); Bilirubin,Total 0.3 mg/dL (0.00-1.00); Blood Urea Nitrogen 11 mg/dL (7-18); Calcium 8.7 mg/dL (8.5-10.1); Carbon Dioxide 31 mmol/L (21-32); Chloride 105 mmol/L (98-108); Estimated Glomerular Filt Rate 55; Glucose 135 mg/dL (70-99); Osmolality Calculated 295 mOsm/kg (285-295); Potassium 3.6 mmol/L (3.5-5.1); Sodium 142 mmol/L (136-145); Total Protein 6.2 g/dL (6.4-8.2)
== END 2021-09-22 17:18 | disposition home or self-care (01) ==
LOC: CHSLAB 17:20
PROVIDERS: PCP Internal Medicine; Visit Provider Nurse Practitioner Family
DX: R05.9 Cough, unspecified (principal); J06.9 Acute upper respiratory infection, unspecified
CPT/HCPCS: 36415; 71046; 80053; 85025

== ENCOUNTER 2022-06-30 13:09 | Outpatient (CLI) | payer MEDICARE, SELFPAY ==
--- NOTE | ~2022-06-30 | MM_ITS ---
EXAMINATION: MM screening beverley BI w liliam HISTORY: Screening TECHNIQUE: Craniocaudal and mediolateral oblique 3-D tomosynthesis images were obtained and synthetic 2-D images were generated. CAD analysis was submitted and interpreted. COMPARISON: Comparison to multiple prior studies sequentially, with oldest reviewed study dated 09/19. BREAST PARENCHYMAL COMPOSITION: Breast composed of scattered areas of fibroglandular density FINDINGS: There is a new mass in the lower inner quadrant of the left breast. The right breast is sta ble without evidence for malignancy. IMPRESSION: 1. New left breast mass, lower inner quadrant. 2. Additional mammographic views and possible breast ultrasound are recommended. BI-RADS Category 0: Incomplete: Needs additional imaging evaluation. Reviewed, dictated and finalized at location A. IMPRESSION: 1. New left breast mass, lower inner quadrant. 2. Additional mammographic views and possible breast ultrasound are recommended . BI-RADS Category 0: Incomplete: Needs additional imaging evaluation.
== END 2022-06-30 13:10 | disposition home or self-care (01) ==
LOC: CHSIMG 13:12
PROVIDERS: PCP Internal Medicine; Visit Provider Internal Medicine
DX: Z12.31 Encounter for screening mammogram for malignant neoplasm of breast (principal); R92.8 Other abnormal and inconclusive findings on diagnostic imaging of breast
CPT/HCPCS: 77063; 77067

== ENCOUNTER 2022-07-07 09:07 | Outpatient (CLI) | payer MEDICARE, SELFPAY ==
--- NOTE | ~2022-07-07 | MMUS_ITS ---
EXAMINATION: MM diagnostic beverley LT w liliam, US breast LT limited HISTORY: Follow-up left breast mass TECHNIQUE: Additional 3-D tomosynthesis images of the left breast were performed and synthetic 2-D im ages were generated. CAD analysis was submitted and interpreted. High resolution Limited left breast ultrasound was performed. COMPARISON: 06/30/2022 BREAST PARENCHYMAL COMPOSITION: Breast composed of scattered areas of fibroglandular density FINDINGS: MAMMOGRAPHIC FINDINGS: There is a periareolar mass of the left breast medially. No suspicious calcifications or architectura l distortion. ULTRASOUND: Limited left breast ultrasound: And 9:00 in the periareolar location there is an antiparallel heterog eneous mass with posterior shadowing measuring 6 x 6 x 5 mm. IMPRESSION: 1. Abnormal 6 mm left breast mass at 9:00 in the periareolar location. 2. Ultrasound-guided left breast biopsy recommended. BI-RADS category 4, suspicious findings. Reviewed, dictated and finalized at location A. IMPRESSION: 1. Abnormal 6 mm left breast mass at 9:00 in the periareolar location. 2. Ultrasound-guided left breast biopsy recommended. BI-RADS category 4, suspicious findings.
== END 2022-07-07 09:08 | disposition home or self-care (01) ==
LOC: CHSIMG 09:08
PROVIDERS: PCP Internal Medicine; Visit Provider Internal Medicine
DX: R92.8 Other abnormal and inconclusive findings on diagnostic imaging of breast (principal)
CPT/HCPCS: 76642; 77061; 77065; G0279

== ENCOUNTER 2023-02-14 14:30 | Outpatient (CLI) | payer MEDICARE, SELFPAY ==
--- NOTE | ~2023-02-14 | XR_ITS ---
EXAMINATION: XR lumbar spine 2-3V DATE: 02/14/2023 15:00 INDICATION: Back pain. Right hip pain. Falls. TECHNIQUE: 3 views of lumbar spine were obtained. COMPARISON: None. FINDINGS: Bone alignment is normal. Vertebral body heights are normal. There is mildly decreased disc height at L5-S1. There are endplate osteophytes at multiple levels. There is multilevel mild to mode rate facet joint arthritis. Surgical clips in the right upper quadrant are likely from cholecystectom y. There is a lap band of the stomach in expected position. IMPRESSION: 1. Mild lumbar spondylosis. Reviewed, dictated and finalized at location E. SUPERVISOR IMPRESSION: 1. Mild lumbar spondylosis.
--- NOTE | ~2023-02-14 | XR_ITS ---
EXAMINATION: XR hip BI 2V w AP pelvis DATE: 02/14/2023 15:00 INDICATION: Bilateral hip pain. TECHNIQUE: An anteroposterior view of the pelvis and 2 views of each hip were obtained. COMPARISON: Left hip radiographs 01/21/2018 FINDINGS: Bone alignment is normal. No fracture. There is mild osteoarthritis of the hips. Osteitis p ubis is noted. IMPRESSION: 1. Mild osteoarthritis of the hips. Reviewed, dictated and finalized at location E. HETICIAN
[2023-02-14 15:10] LABS: Basophils Absolute Auto 0.03 K/mm3 (0.00-0.10); Basophils Percent Auto 0.5 % (0.0-1.0); Eosinophils Absolute Auto 0.09 K/mm3 (0.02-0.50); Eosinophils Percent Auto 1.6 % (1.0-6.0); Hematocrit 39.7 % (35.0-42.0); Hemoglobin 13.4 g/dL (11.7-13.8); Immature Granulocyte Absolute 0.02 K/mm3 (0.00-0.00); Immature Granulocyte Percent A 0.3 % (0.0-0.0); Lymphocytes Absolute Auto 1.52 K/mm3 (1.10-4.50); Lymphocytes Percent Auto 26.3 % (18.0-42.0); Mean Corpuscular HGB Conc 33.8 g/dL (32.0-36.0); Mean Corpuscular Hemoglobin 33.3 pg (27.0-31.0); Mean Corpuscular Volume 98.8 fL (78.0-102.0); Mean Platelet Volume 9.2 fl (9.2-11.8); Monocytes Absolute Auto 0.53 K/mm3 (0.10-0.90); Monocytes Percent Auto 9.2 % (2.0-11.0); Neutrophils Absolute Auto 3.6 K/mm3 (1.7-7.2); Neutrophils Percent Auto 62.1 % (50.0-70.0); Platelet Count Result 164 K/mm3 (150-420); Red Blood Count 4.02 M/mm3 (4.20-5.40); Red Cell Distribution Width 12.6 % (11.6-14.4); White Blood Count 5.8 K/mm3 (4.8-10.8)
[2023-02-14 15:24] LABS: Alanine Aminotransferase 21 U/L (14-59); Albumin Level 3.9 g/dL (3.4-5.0); Alkaline Phosphatase 104 U/L (46-116); Anion Gap 9 mmol/L (8-16); Bilirubin,Total 0.4 mg/dL (0.00-1.00); Blood Urea Nitrogen 13 mg/dL (7-18); Carbon Dioxide 32 mmol/L (21-32); Chloride 102 mmol/L (98-108); Estimated Glomerular Filt Rate 57; Glucose 93 mg/dL (70-99); Osmolality Calculated 296 mOsm/kg (285-295); Potassium 3.6 mmol/L (3.5-5.1); Sodium 143 mmol/L (136-145); Total Protein 6.1 g/dL (6.4-8.2); Uric Acid 5.2 mg/dL (2.6-6.0)
[2023-02-14 15:25] LABS: CRP < 0.5 mg/dL (0.0-0.9)
[2023-02-14 15:35] LABS: Aspartate Amino Transferase 12 U/L (15-37)
== END 2023-02-14 14:31 | disposition home or self-care (01) ==
LOC: CHSLAB 14:33
PROVIDERS: PCP Internal Medicine; Visit Provider Internal Medicine
DX: M25.552 Pain in left hip (principal); M25.551 Pain in right hip; M10.9 Gout, unspecified; M43.06 Spondylolysis, lumbar region; M16.0 Bilateral primary osteoarthritis of hip
CPT/HCPCS: 36415; 72100; 73521; 80053; 84550; 85025; 86140

== ENCOUNTER 2023-02-20 13:07 | Outpatient (RCR) | payer MEDICARE, SELFPAY ==
--- NOTE | 2023-02-20 14:41 | OPREHPOC ---
Outpatient Therapy Plan of Care This is a Multidisciplinary Plan of Care that may contain components documented by all disciplines (PT, OT, and ST.) PT Problem 1 PT Problem #1 Knowledge Deficit PT Goal 1 Goal Patient to report independence with HEP Target Visit 6 PT Problem 2 PT Problem #2 Pain PT Goal 1 Goal 1. Patient to report highest pain at 4/10 2. Patient to report ability to sit for >1 hour with no increase in pain Target Visit 12 PT Problem 3 PT Problem #3 Impaired Strength PT Goal 1 Goal Patient to demonstrate 4+/5 B LE strength to improve ability to ambulate prolonged periods of time to complete grocery shopping Target Visit 12 PT Problem 4 PT Problem #4 Impaired Flexibility PT Goal 1 Goal 1. Patient to demonstrate 20 deg of B HS flexibility to improve ability to stand for house hold tasks 2. Patient to demonstrate no tenderness to the L piriformis to improve sitting tolerance Target Visit 12 PT Problem 5 PT Problem #5 Impaired Functional Mobil PT Goal 1 Goal Patient to score 20% improvement on LEFS Target Visit 12
--- NOTE | 2023-02-20 14:41 | PTOPEVAL1 ---
Assessment and note entered by Emilee Baldwin DPT Evaluation Information Assessment Status Re-evaluation Diagnosis B hip pain, back pain Onset 02/15/23 Subjective Information Patient reports that she has fallen 4 times within the last month and on the last time she fell she has had increase hip pain since. She reports she loses her balance doing activity when she falls. She also reports she has poor circulation and neuropathy. She reports she has a long history of back and hip pain and has done PT in the past. She reports pain is worse with walking, sitting for long periods of time and standing to complete house hold tasks. She has had B hips and lumbar spine x-rays which showed mild arthrits. Reported Pain Level Pain Score 8,6,5: Self Report Assessment PT Clinical Summary Patient is a 67 year old female who presents to PT with low back and B hip pain. She demonstrates decreased B LE strength, decreased B LE flexibility and decreased lumbar mobility impairing her ability to sit for long periods of time, ambulate distances needed to grocery shop and stand for house hold tasks. She would benefit from skilled PT to address impairments and return to PLOF. Plan of Care Interventions Electrical Stimulation,Gait Training,Hot Pack/Cold Pack,Manual Therapy,Mechanical Traction,Neuro Re- education,Patient/Caregiver Educati,Therapeutic Activities,Therapeutic Exercise PT Services Indicated Yes Treatment Frequency and 2x weekly for 12 visits Duration These treatments will address the objective and functional deficits as defined above. The patient will be advanced safely and appropriately in order for the patient to progress towards his/her prior level of function. Additional exercises will be introduced and as well as a comprehensive home exercise program upon discharge, if needed, ?to ensure carryover of functional gains achieved in the clinic. This treatment plan has been reviewed and agreement upon by the patient.
--- NOTE | 2023-06-28 08:24 | PCPTNOTE ---
patient discharged due to length of time since previous PT visits.
== END 2023-03-13 20:00 | disposition home or self-care (01) ==
LOC: CHSPT 13:07
PROVIDERS: PCP Internal Medicine; Visit Provider Internal Medicine
DX: M25.551 Pain in right hip (principal); M25.552 Pain in left hip
CPT/HCPCS: 97014; 97110; 97140; 97150; 97161; G0283

== ENCOUNTER 2023-06-06 20:03 | Outpatient (CLI) | payer MEDICARE, SELFPAY ==
--- NOTE | 2023-06-26 13:29 | WPDSLEEPSTUD ---
Sleep Study Date of Study: 06/06/23 Ordering Provider: Nicanor Chang MD Interpreting Physician: Rachel Humphries MD Sleep Study Type: CPAP Titration Height: 1.55 m Weight: 75.977 kg Body Mass Index: 31.6 Neck Circumference (inches): 13.5 [place]arrison: 7 Reason for Sleep Study Obstructive sleep apnea, this is a repeat titration; she is being evaluated for Inspire, hypoglossal nerve stimulator as an alternative to PAP * 06/20/2018 CPAP titration at [facility]; The patient had been on CPAP for years at that point. She was titrated to a maximum of CPAP 16 cm pre correction of obstructive events, few central events remained. Sleep History Nohemi Cornelius is a 68-year-old woman with depression, hypertension, CLL who has a diagnosis of obstructive sleep apnea. She needs a repeat titration as part of her evaluation for Inspire, a hypoglossal nerve stimulator which is an alternative treatment to CPAP. It is not known if she wore her PAP up until the night of this study. She rarely awakens from sleep short of breath. She rarely wakes at night with heartburn, belching or coughing.??She occasionally snores loudly enough that others complain. She frequently sleep has trouble sleeping when she has a cold. She frequently wakes up gasping for breath during the night. She occasionally has breathing problems at night. She rarely sweats excessively at night. She occasionally notices her heart pounding or beating irregularly during the night. She rarelyfalls asleep during the day. She rarely falls asleep involuntarily, never falls asleep while driving. She never experiences loss of muscle tone with strong emotion. She never feels paralyzed on waking or falling asleep. She rarely experiences vivid dreams upon waking or falling asleep. She never feels afraid of going to sleep. She never has nightmares. She rarely recalls her dreams. She occasionally has thoughts racing through her mind. She rarely feels sad or depressed. She rarely feels anxiety. She frequently notices parts of her body jerk. She frequently kicks during the night. She rarely feels crawling or aching feelings in her legs. She frequently feels leg pain at night. She frequently has morning jaw pain, and frequently grinds her teeth at night. She frequently feels bothered by pain during the day, is frequently awakened by pain during the night. She frequently wakes up feeling stiff in the morning, frequently wakes feeling sore or achy in the morning. She frequently awakens with pain in her neck, spine, or joints. she has memory problems, headaches, fatigue and she takes antacids regularly. Normal bedtime is between 10:00 p.m. and 12 midnight, falling asleep within 20 minutes, waking 1-2 times during the night taking 15 minutes to return to sleep. These awakenings occur in the middle of the night. If she is not able to return to sleep easily, she watches television. Her normal wake time is between a.m. and 9:00 a.m.. She keeps the same schedule on weekends. She stays in bed for 2 hours after waking. Sometimes she takes naps in the afternoon or evening. A short nap lasting 10-15 minutes is not refreshing. She is usually drowsy for 2 hours after waking. She feels better in the evening compared to other times of day. Habits:??Tobacco: Former smoker, quit years ago Caffeine: 2 cups per day. Alcohol: 1 serving per day Recreational substances: none PMFSH Past Medical History Medical History (Updated 06/26/23 @ 14:21 by Rachel Humphries MD) Anxiety CAD (coronary artery disease) Chronic lymphocytic leukemia (CLL), B-cell CVA (cerebral vascular accident) Depression GERD (gastroesophageal reflux disease) Hyperlipidemia Hypertension IKER (obstructive sleep apnea) Surgical History Surgical History (Updated 06/26/23 @ 13:42 by Rachel Humphries MD) S/P hysterectomy age 23, endometriosis S/P left cataract extraction Family History Family History (Updated 06/26/23 @ 13:
[2023-06-26 14:27] VITALS: BMI 31.6
== END 2023-06-07 06:37 | disposition home or self-care (01) ==
LOC: CHSCSM 20:04
PROVIDERS: PCP Internal Medicine; Visit Provider Internal Medicine
DX: G47.33 Obstructive sleep apnea (adult) (pediatric) (principal)
CPT/HCPCS: 95811

== ENCOUNTER 2023-07-25 14:39 | Outpatient (CLI) | payer MEDICARE, SELFPAY ==
[2023-07-25 15:10] LABS: Basophils Absolute Auto 0.03 K/mm3 (0.00-0.10); Basophils Percent Auto 0.4 % (0.0-1.0); Eosinophils Absolute Auto 0.08 K/mm3 (0.02-0.50); Hematocrit 37.7 % (35.0-42.0); Hemoglobin 12.6 g/dL (11.7-13.8); Immature Granulocyte Absolute 0.06 K/mm3 (0.00-0.00); Immature Granulocyte Percent A 0.8 % (0.0-0.0); Lymphocytes Absolute Auto 1.29 K/mm3 (1.10-4.50); Lymphocytes Percent Auto 16.2 % (18.0-42.0); Mean Corpuscular HGB Conc 33.4 g/dL (32-36); Mean Corpuscular Hemoglobin 33.2 pg (27.0-31.0); Mean Corpuscular Volume 99.2 fL (78.0-102.0); Monocytes Absolute Auto 0.67 K/mm3 (0.10-0.90); Monocytes Percent Auto 8.4 % (2.0-11.0); Neutrophils Absolute Auto 5.81 K/mm3 (1.70-7.20); Neutrophils Percent Auto 73.2 % (50.0-70.0); Platelet Count Result 182 K/mm3 (150-420); Red Cell Distribution Width 12.2 % (11.6-14.4); White Blood Count 7.9 K/mm3 (4.8-10.8)
[2023-07-25 15:15] LABS: Appearance Urine Clear (Clear); Bilirubin Urine Negative (Negative); Blood Urine Negative (Negative); Color Urine Yellow (Yellow); Glucose Urine UA Negative (Negative); Ketones Urine Negative (Negative); Leukocyte Esterase Ur Negative (Negative); Nitrate Urine Negative (Negative); Protein Urine Negative (Negative); Specific Grav Ur 1.025 (1.010-1.020); pH Urine 5.5 (5.0-8.0)
[2023-07-25 15:23] LABS: Add Urine Microscopic? NO
[2023-07-25 15:34] LABS: Alanine Aminotransferase 25 U/L (14-59); Albumin Level 3.4 g/dL (3.4-5.0); Alkaline Phosphatase 85 U/L (46-116); Anion Gap 1 mmol/L (4-12); Aspartate Amino Transferase 14 U/L (15-37); Bilirubin,Total 0.4 mg/dL (0.00-1.00); Blood Urea Nitrogen 19 mg/dL (7-18); Calcium 8.6 mg/dL (8.5-10.1); Carbon Dioxide 36 mmol/L (21-32); Chloride 100 mmol/L (98-108); Cholesterol 264 mg/dL (0-200); Estimated Glomerular Filt Rate 60; Glucose 101 mg/dL (70-99); HDL Direct 58 mg/dL (40-60); LDL Cholesterol Calculated 176 mg/dL (<130); Osmolality Calculated 286 mOsm/kg (285-295); Sodium 137 mmol/L (136-145); Thyroid Stimulating Hormone 3.14 uIU/mL (0.36-3.74); Total Protein 5.8 g/dL (6.4-8.2); Triglycerides 149 mg/dL (0-150); Uric Acid 4.7 mg/dL (2.6-6.0)
[2023-07-25 15:36] LABS: CRP < 0.5 mg/dL (0.0-0.9)
== END 2023-07-25 14:40 | disposition home or self-care (01) ==
LOC: CHSLAB 14:41
PROVIDERS: PCP Internal Medicine; Visit Provider Internal Medicine
DX: I10 Essential (primary) hypertension (principal); G89.29 Other chronic pain; E78.5 Hyperlipidemia, unspecified; M10.9 Gout, unspecified
CPT/HCPCS: 36415; 80053; 80061; 81003; 84443; 84550; 85025; 86140

== ENCOUNTER 2024-03-26 14:30 | Outpatient (CLI) | payer MEDICARE, SELFPAY ==
--- NOTE | ~2024-03-26 | XR_ITS ---
EXAMINATION: XR chest 2V 03/26/2024 14:43 INDICATION: Cough with fever PROCEDURE: 2 view chest COMPARISON: Comparison to multiple prior studies sequentially, with oldest reviewed study dated 05/2020. FINDINGS: The lungs are clear. Central venous catheter tip near the cavoatrial junction. The cardiome diastinal silhouette is within normal limits. There are no pleural effusions. There is no pneumotho rax suspected. There are cholecystectomy clips. IMPRESSION: 1: NO ACUTE CARDIOPULMONARY DISEASE. Reviewed, dictated and finalized at location B. CIATE BROKER
== END 2024-03-26 14:31 | disposition home or self-care (01) ==
PROVIDERS: PCP Internal Medicine; Visit Provider Nurse Practitioner Family
DX: R05.9 Cough, unspecified (principal); R50.9 Fever, unspecified
CPT/HCPCS: 71046

== ENCOUNTER 2024-03-27 08:20 | Outpatient (CLI) | payer MEDICARE, SELFPAY ==
--- NOTE | 2024-04-16 19:41 | WPDSLEEPSTUD ---
Sleep Study Date of Study: 03/27/24 Ordering Provider: Ida Vieira Interpreting Physician: Eliza Fields DO Sleep Study Type: Split Polysomnogram Height: 1.57 m Weight: 78.925 kg Body Mass Index: 31.8 Neck Circumference (inches): 15 [place]: 7 Reason for Sleep Study Previously diagnosed IKER. Failed CPAP and mandibular advancement therapy. She is being evaluated as an Inspire candidate. Sleep History Nohemi Cornelius is a 68-year-old woman with depression, hypertension, CLL who has a diagnosis of obstructive sleep apnea. She needs a repeat titration as part of her evaluation for Inspire, a hypoglossal nerve stimulator which is an alternative treatment to CPAP. It is not known if she wore her PAP up until the night of this study. She rarely awakens from sleep short of breath. She rarely wakes at night with heartburn, belching or coughing.??She occasionally snores loudly enough that others complain. She frequently sleep has trouble sleeping when she has a cold. She frequently wakes up gasping for breath during the night. She occasionally has breathing problems at night. She rarely sweats excessively at night. She occasionally notices her heart pounding or beating irregularly during the night. She rarelyfalls asleep during the day. She rarely falls asleep involuntarily, never falls asleep while driving. She never experiences loss of muscle tone with strong emotion. She never feels paralyzed on waking or falling asleep. She rarely experiences vivid dreams upon waking or falling asleep. She never feels afraid of going to sleep. She never has nightmares. She rarely recalls her dreams. She occasionally has thoughts racing through her mind. She rarely feels sad or depressed. She rarely feels anxiety. She frequently notices parts of her body jerk. She frequently kicks during the night. She rarely feels crawling or aching feelings in her legs. She frequently feels leg pain at night. She frequently has morning jaw pain, and frequently grinds her teeth at night. She frequently feels bothered by pain during the day, is frequently awakened by pain during the night. She frequently wakes up feeling stiff in the morning, frequently wakes feeling sore or achy in the morning. She frequently awakens with pain in her neck, spine, or joints. she has memory problems, headaches, fatigue and she takes antacids regularly. Normal bedtime is between 10:00 p.m. and 12 midnight, falling asleep within 20 minutes, waking 1-2 times during the night taking 15 minutes to return to sleep. These awakenings occur in the middle of the night. If she is not able to return to sleep easily, she watches television. Her normal wake time is between a.m. and 9:00 a.m.. She keeps the same schedule on weekends. She stays in bed for 2 hours after waking. Sometimes she takes naps in the afternoon or evening. A short nap lasting 10-15 minutes is not refreshing. She is usually drowsy for 2 hours after waking. She feels better in the evening compared to other times of day. Habits:??Tobacco: Former smoker, quit years ago Caffeine: 2 cups per day. Alcohol: 1 serving per day Recreational substances: none PMFSH Past Medical History Medical History Chronic lymphocytic leukemia (CLL), B-cell Depression Anxiety GERD (gastroesophageal reflux disease) IKER (obstructive sleep apnea) Hypertension Hyperlipidemia CAD (coronary artery disease) CVA (cerebral vascular accident) Surgical History Surgical History S/P left cataract extraction S/P hysterectomy age 23, endometriosis Family History Family History Father Family history of leukemia Heart disease Diabetes mellitus Asbestosis Mother Heart disease Hypertension Hyperlipidemia Diabetes mellitus Cerebrovascular accident Sibling Emphysema of lung Multiple myeloma Social History Social History Social History: retired; Smoking packs per day: 0 Smoking cigarettes per day: 0.0 Smoking status: Former smoker Alcohol intake: never Substance use: never Living arrangements: with family Gender identity (if verbalized by the patient): Female Medications Home Medications ?Medication ?Instructions ?Recorded ?Confirmed ?Type acetaminophen 300 mg-codeine 60 mg 1 tablet PO PRN PRN Pain 05/22/19 08/27/20 History tablet betamethasone, augmented 0.05 % 1 applic topical DAILY 05/22/19 08/27/20 History lotion celecoxib 100 mg capsule 100 mg PO DAILY 05/22/19 04/10/21 History gabapentin 300 mg capsule 300 mg PO BID 05/22/19 04/10/21 History montelukast 10 mg tablet 10 mg PO DAILY 05/22/19 04/10/21 History nortriptyline 25 mg capsule 25 mg PO DAILY 05/22/19 04/10/21 History pantoprazole 40 mg tablet,delayed 40 mg PO BID 05/22/19 04/10/21 History release spironolactone 25 1 tablet PO DAILY 05/22/19 08/27/20 History mg-hydrochlorothiazide 25 mg tablet escitalopram oxalate 20 mg tablet 20 mg PO DAILY 08/27/20 04/10/21 History propranolol 60 mg capsule,24 60 mg PO DAILY 08/27/20 04/10/21 History hr,extended release sulfamethoxazole 800 1 tablet PO DAILY 08/27/20 04/10/21 History mg-trimethoprim 160 mg tablet tizanidine 2 mg tablet 2 mg PO DAILY 08/27/20 04/10/21 History acyclovir 400 mg tablet 400 mg PO DAILY 04/10/21 04/10/21 History cyclobenzaprine 10 mg tablet 10 mg PO DAILY 04/10/21 04/10/21 History lidocaine-prilocaine 2.5 %-2.5 % 04/10/21 History topical cream nabumetone 750 mg tablet 750 mg PO BID #20 tabs 04/10/21 Rx Sleep Procedure A full night split study using the [employer] multi-channel system recorded the standard physiologic parameters including EEG, EOG, submentalis EMG, anterior tibialis EMG, EKG, body position, nasal and oral airflow using nasal pressure sensor and thermistor.? Respiratory parameters of chest and abdominal movements were recorded with Respiratory Inductance Plethysmography belts. Oxygen saturation was recorded by pulse oximetry. Video monitoring was also performed. Sleep stages, periodic limb movements, and EEG arousals were scored in 30 second epochs according to the criteria of the AASM Scoring Manual. The Apnea-Hypopnea Index was calculated using [facility] guidelines for definition of hypopnea with 4% O2 desaturations while scoring respiratory events. Sleep Architecture During the diagnostic portion of the study, the total recording time was 162.4 minutes. The total sleep time was 141.5 minutes. Sleep latency was 8.9 minutes.? REM sleep was not achieved during this portion of the study. Sleep Efficiency was 87.1%. The patient had 8 awakenings for an awakening index of 3.4. Wake after sleep onset time was 12.0 minutes. The patient spent 18.5 minutes, 13.1% of total sleep time in Stage N1. The patient spent 82.5 minutes, 58.3% in Stage N2. The patient spent 40.5 minutes, 28.6% in Stage N3. The patient spent 0.0 minutes, 0.0% in Stage REM sleep. At 01:08:49 AM the patient was placed on PAP treatment and was titrated at pressures ranging from 5 cm H20 up to 15 cm H20. During the treatment portion of the study, the total recording time was 292.5 minutes.? The total sleep time was 272.0 minutes. Sleep latency was 8.5 minutes. REM latency was 116.0 minutes. Sleep Efficiency was 93.0%. Wake after Sleep Onset time was 12.5 minutes. The patient spent 27.5 minutes, 10.1% of total sleep time in Stage N1. The patient spent 224.5 minutes, 82.5% in Stage N2. The patient spent 0.0 minutes, 0.0% in Stage N3. The patient spent 20.0 minutes, 7.4% in Stage REM. Respiratory Analysis During the diagnostic portion of the study, the patient had 19 hypopneas, 13 obstructive apneas and 1 central apnea for an overall Apnea Hypopnea Index of 14.0 events per hour. The REM Apnea Hypopnea Index was 0. The NREM Apnea Hypopnea Index was 14.0. The patient had a Central Apnea Hypopnea Index of 0.4. There was no evidence of Nestor-Peterson Respirations. During the treatment portion of the study, the patient had 52 hypopneas for an overall Apnea Hypopnea Index of 11.5 events per hour. The REM Apnea Hypopnea Index was 36.0. The NREM Apnea Hypopnea Index was 9.5. The patient had a Central Apnea Hypopnea Index of 0. There was no evidence of Nestor-Peterson Respirations. The patient was started on CPAP 5 cm H2O and was titrated to CPAP 15 cm H2O. The patient was able to fall asleep starting on CPAP 5 cm H2O. The patient was able to achieve REM sleep starting on CPAP 7 cm H2O. The patient's sleep apnea resolved on the final pressure. On CPAP 15 cm H2O, the patient spent 28.5 minutes in NREM and 1 minute in REM with no respiratory events, resulting in an AHI of 0. The patient had a sleep efficiency of 88.1% on this pressure setting. Arousals During the diagnostic portion of the study, there were a total of 33 arousals for an arousal index of 14.0.? There were 6 respiratory arousals for an index of 2.5. There were 2 periodic limb movement arousals for an index of 0.8.? There were 5 isolated limb movement arousals for an index of 2.1. There were 20 spontaneous arousals for an index of 8.5. During the treatment portion of the study, there were a total of 55 arousals for an index of 12.1.? There were 16 respiratory arousals for an index of 3.5. There were 7 periodic limb movement arousals for an index of 1.5.? There were 2 isolated limb movement arousals for an index of 0.4. There were 29 spontaneous arousals for an index of 6.4. Periodic Limb Movements During the diagnostic portion of the study, the patient had 21 isolated limb movements with an index of 8.9. The patient had 11 periodic limb movements with an index of 4.7. The patient had a total of 32 limb movements with a total limb movement index of 13.6. During the treatment portion of the study, the patient had 23 isolated limb movements with an index of 5.1. The patient had 23 periodic limb movements with an index of 5.1. The patient had a total of 46 limb movements with a total limb movement index of 10.1. Oximetry Data During the diagnostic portion of the study, the patient had an average oxygen saturation of 95.1% in wake with a minimum oxygen saturation of 78% and a maximum oxygen saturation of 99%. The patient had an average oxygen saturation of 91.4% in sleep with a minimum oxygen saturation of 78.0% and a maximum oxygen saturation of 98.0%. The patient had 63 oxygen desaturations resulting in an Oxygen Desaturation Index of 26.7. The patient spent 13.5 minutes, 8.6% of total sleep time with an oxygen saturation less than 88%. During the treatment portion of the study, the patient had an average oxygen saturation of 92.4% in wake with a minimum oxygen saturation of 87.0% and a maximum oxygen saturation of 96.0%. The patient had an average oxygen saturation of 92.0% in sleep with a minimum oxygen saturation of 81.0% and a maximum oxygen saturation of 98.0%. The patient had 92 oxygen desaturations resulting in an Oxygen Desaturation Index of 20.3. The patient spent 7.2 minutes, 2.5% of total sleep time with an oxygen saturation less than 88%. Snoring Profile Mild snoring was present intermittently in the baseline portion of the study. The snoring resolved once the patient was titrated to 11 cm H2O. Cardiac Profile The EKG lead showed normal sinus rhythm. No arrhythmias or premature beats were seen. During the diagnostic portion of the study, the average pulse rate was 71.4 bpm.? The minimum pulse rate was 68.0 bpm. The maximum pulse rate was 79.0 bpm. During the treatment portion of the study, the average pulse rate was 65.2 bpm.? The minimum pulse rate was 60.0 bpm. The maximum pulse rate was 94.0 bpm. EEG Profile No signs of seizure activity seen. Assessment and Plan Assessment and Plan (1) IKER (obstructive sleep apnea): Code(s): G47.33 - Obstructive sleep apnea (adult) (pediatric) Status: Acute Assessment and Plan: In the diagnostic portion of the study, the patient had an overall AHI of 14.0 with desaturation down to78%. This is consistent with mild sleep apnea. The patient was started on CPAP 5 cm H2O and was titrated to CPAP 15 cm H2O. There were no findings in this study that would disqualify the patient from being considered as an Inspire candidate. Data The data obtained during this sleep study is adequate for interpretation. Certification This sleep study has been reviewed by a board certified sleep medicine physician.
[2024-04-18 18:06] VITALS: BMI 31.8
== END 2024-03-28 06:32 | disposition home or self-care (01) ==
LOC: ANHCSM 08:21
PROVIDERS: PCP Internal Medicine
DX: G47.33 Obstructive sleep apnea (adult) (pediatric) (principal)
CPT/HCPCS: 95811

== ENCOUNTER 2024-06-20 12:02 | Outpatient (CLI) | payer MEDICARE, SELFPAY ==
--- NOTE | ~2024-06-20 | MM_ITS ---
EXAMINATION: MM screening [facility] BI w liliam HISTORY: Screening mammogram TECHNIQUE: Craniocaudal and mediolateral oblique 3-D tomosynthesis images were obtained and synthetic 2-D images were generated. CAD analysis was submitted and interpreted. COMPARISON: 07/07/2022, 06/30/2022, 03/23/2021 BREAST PARENCHYMAL COMPOSITION:Not Dense. There are scattered areas of fibroglandular density. FINDINGS: No suspicious mass, calcification, or architectural distortion are identified in either madiha ast to suggest malignancy. There has been no suspicious interval change. IMPRESSION: No mammographic evidence of malignancy. Recommend routine screening mammography in one year. BI-RADS Category 1: Negative Reviewed, dictated and finalized at location .
--- OUTSIDE RECORDS SUMMARY | 2024-06-20 12:25 | XMS_ITS | Encounter Summary ---
Author Organization [facility] Healthcare Address [address] [place] [address] Care Team Providers Care Contact Clerk Name Role Phone Nicanor Chang MD Primary Care Provider [phone] Nicanor Chang MD Unavailable [phone] Reason for Visit * Diagnostic Imaging (Routine) - Closed Specialty Diagnoses / Procedures Referred By Contac t Referred To Contact Diagnoses Illness, unspecified Procedures Breast Imaging Screening Outside Reference Renetta Browne MD Phone: tel: fax: [facility] [address] [place] [address] Phone: tel: Referral ID Status Reason Start Date Expiration Date Visits Re quested Visits Authorized [id number] Closed 07/13/2022 08/12/2023 1 1 Encounter Details Date Type Department Care Team (Late st Contact Info) Description 08/15/2018 Hospital Encounter [facility] [address] [place] [id number] Social History Tobacco Use Types Packs/Day Years Used Date Smoking Tobacco: Former Cigarettes 1.5 15 0 11/08/1973 - 11/08/1988 Smokeless Tobacco: Never AUDIT-C Answer Date Recorded Q1: How often do you have a drink containing alc ohol? Monthly or less 02/19/2024 Q2: How many drinks containi ng alcohol do you have on a typical day when you are drinking? 1 or 2 02/19/2024 Q3: How often do you have si x or more drinks on one occasion? Never 02/19/2024 Personal Safety Answer Date Recorded Have you ever been in or are you currently in a harmful physical or emotional relationship or is someone making you feel afraid or unsafe? 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 Monthly or less 02/19/2024 6:59 AM Cecilia Hutchison RN Q2: How many drinks containing alcohol do you have on a typical day when you are drinking? 1 or 2 02/19/2024 6:59 AM Cecilia Hutchison RN Q3: How often do you have six or more drinks on one occasion? Never 02/19/2024 6:59 AM Cecilia Hutchison RN documented as of this encounter Plan of Treatment Not on file documented as of this encounter Procedures Procedure Name Priority Date/Time Associated Diagnosis Comments BREAST IMAGING MG SCREENING OUTSIDE REFERENCE Routine 08/15/2018 12:00 AM CDT documented in this encounter Results * Breast Imaging Screening Outside Reference (08/15/2018 12:00 AM CDT) Impressions RAD_M[facility]MO[facility] - 07/13/2022 5:36 PM CDT These images are for Reference purposes only and have not been reviewed by [facility]. There will be no report generated by a [facility]iologist. Narrative [facility]_MAMMO[facility] - 07/13/2022 5:36 PM CDT EXAMINATION: Images For Reference Purposes Only us Renetta Browne MD IMG MAMMO PROCEDURES Final Re sult [facility] documented in this encounter Visit Diagnoses Not on filedocumented in this encounter Additional Health Concerns Infection Onset Date Last Indicated Resolved Time COVID: Suspected 04/18/2021 04/18/2021 04/18/2021 8:34 PM SINGLE END SEWER COVID: Suspected 05/13/2021 05/13/2021 05/13/2021 3:50 PM SINGLE END SEWER documented as of this encounter Care Teams Contact Clerk Relationship Specialty Start Date End Date Nicanor Chang MD PCP - General 08/11/16 Nicanor Chang MD 08/11/16 documented as of this encounter
--- OUTSIDE RECORDS SUMMARY | 2024-06-20 12:25 | XMS_ITS | Encounter Summary ---
Author Organization [facility] Address [address] [facility] [address] [place] [address] Phone Care Team Providers Care Yarn Conditioner Name Role Phone Nicanor Chang MD Primary Care Provider [phone] Nicanor Chang MD Unavailable [phone] Renetta Browne MD Unavailable [phone] Encounter Details Date Type Department Care Team (Late st Contact Info) Description 06/19/2024 Documentation [facility] On[facility] Floor [address] [place] [id number] Dee Dee Bates RN Social History Tobacco Use Types Packs/Day Years [...] on file 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 documented in this encounter Plan of Treatment Not on file documented as of this encounter Visit Diagnoses Not on filedocumented in this encounter Care Teams Yarn Conditioner Relationship Specialty Start Date End Date Nicanor Chang MD PCP - General 08/11/16 Nicanor Chang MD 08/11/16 Renetta Browne MD Medical Oncologist/Engineering Tech Medical Oncology 06/02/20 documented as of this encounter
--- OUTSIDE RECORDS SUMMARY | 2024-06-20 12:25 | XMS_ITS | Encounter Summary ---
Author Organization [facility] Address [address] [facility] [address] [place] [address] Phone Care Team Providers Care Marble Installer Name Role Phone Nicanor Chang MD Primary Care Provider [phone] Nicanor Chang MD Unavailable [phone] Rneetta Browne MD Unavailable [phone] Encounter Details Date Type Department Care Team (Late st Contact Info) Description 03/07/2022 Telephone [facility] Oncology [address] [address] Chanelle Baird, B.A. Social History Tobacco Use Types Packs/Day Years Used Date Smoking Tobacco: Former Cigarettes 1.5 15 0 11/08/1973 - 11/08/1988 Smokeless Tobacco: Never AUDIT-C Answer Date Recorded Q1: How often do you have a drink containing alc ohol? Never 02/24/2021 Q2: How many drinks containi ng alcohol do you have on a typical day when you are drinking? 1 or 2 02/24/2021 Q3: How often do you have six or more drinks on one occasion? 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
--- OUTSIDE RECORDS SUMMARY | 2024-06-20 12:25 | XMS_ITS | Encounter Summary ---
Author Organization [facility] Address [address] [place] [address] Phone Care Team Providers Care Biodiesel Product Development Manager Name Role Phone Nicanor Chang MD Primary Care Provider [phone] Nicanor Chang MD Unavailable [phone] Renetta Browne MD Unavailable [phone] Encounter Details Date Type Department Care Team (Latest Contact Info) Description 06/30/2022 Orders Only [facility] Scanning, Provider Social History Tobacco Use Types Packs/Day Years [...] on file 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 Gender Identity Not on file Sexual Orientation Not on file documented as of this encounter Plan of Treatment Not on file documented as of this encounter Procedures Procedure Name Priority Date/Time Associated Diagnosis Comments SCAN - RADIOLOGY/IMAGING 06/30/2022 documented in this encounter Results * SCAN - RADIOLOGY/IMAGING (06/30/2022) Anatomical Region Laterality Modality Other us Provider Scanning Final Result documented in this encounter Visit Diagnoses Not on filedocumented in this encounter Care Teams Biodiesel Product Development Manager Relationship Specialty Start Date End Date Nicanor Chang MD PCP - General 08/11/16 Nicanor Chang MD 08/11/16 Renetta Browne MD Medical Oncologist/Calender Let Off Helper Medical Oncology 06/02/20 documented as of this encounter
--- OUTSIDE RECORDS SUMMARY | 2024-06-20 12:25 | XMS_ITS | Encounter Summary ---
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 Gender Identity Not on file Sexual Orientation Not on file documented as of this encounter Plan of Treatment Not on file documented as of this encounter Procedures Procedure Name Priority Date/Time Associated Diagnosis Comments SCAN - RADIOLOGY/IMAGING 03/23/2021 documented in this encounter Results * SCAN - RADIOLOGY/IMAGING (03/23/2021) Anatomical Region Laterality Modality Other us Provider Scanning Final Result documented in this encounter Visit Diagnoses Not on filedocumented in this encounter Additional Health Concerns Infection Onset Date Last Indicated Resolved Time COVID: Suspected 04/18/2021 04/18/2021 04/18/2021 8:34 PM MOTORCYCLE MECHANIC COVID: Suspected 05/13/2021 05/13/2021 05/13/2021 3:50 PM MOTORCYCLE MECHANIC documented as of this encounter Care Teams Industrial Manufacturing Technician Relationship Specialty Start Date End Date Nicanor Chang MD PCP - General 08/11/16 Nicanor Chang MD 08/11/16 Renetta Browne MD Medical Oncologist/Digital Marketing Apprentice Medical Oncology 06/02/20 documented as of this encounter
--- OUTSIDE RECORDS SUMMARY | 2024-06-20 12:25 | XMS_ITS | Encounter Summary ---
Author Organization [facility] Address [address] [place] [address] Care Team Providers Care Parts Cataloger Name Role Phone Nicanor Chang MD Primary Care Provider [phone] Nicanor Chang MD Unavailable Reason for Visit * Diagnostic Imaging (Routine) - Closed Specialty Diagnoses / Procedures Referred By Contac t Referred To Contact Diagnoses Illness, unspecified Procedures Breast Imaging Screening Outside Reference Renetta Browne MD Phone: tel: fax: [facility] [address] [place] [address] Phone: tel: Referral ID Status Reason Start Date Expiration Date Visits Re quested Visits Authorized [id number] Closed 07/13/2022 08/12/2023 1 1 Encounter Details Date Type Department Care Team (Late st Contact Info) Description 05/07/2017 Hospital Encounter [facility] [address] [place] [id number] Social History Tobacco Use Types Packs/Day [...] on file Legal Sex Female 7:02 AM WALL TAPER HELPER Gender Identity Not on file Sexual Orientation [...] BREAST IMAGING MG SCREENING OUTSIDE REFERENCE Routine 05/07/2017 12:00 AM WALL TAPER HELPER documented in this encounter Results * Breast Imaging Screening Outside Reference (05/07/2017 12:00 AM WALL TAPER HELPER) Impressions [facility] - 07/13/2022 5:36 PM CDT These images are for Reference purposes only and have not been reviewed by [facility]. There will be no report generated by a [facility] Radiologist. Narrative [facility] - 07/13/2022 5:36 PM CDT EXAMINATION: Images For Reference Purposes Only us Renetta Browne MD IMG MAMMO PROCEDURES Final Re sult [facility] documented in this encounter Visit Diagnoses Not on filedocumented in this encounter Additional Health Concerns Infection Onset Date Last Indicated Resolved Time COVID: Suspected 04/18/2021 04/18/2021 04/18/2021 8:34 PM WALL TAPER HELPER COVID: Suspected 05/13/2021 05/13/2021 05/13/2021 3:50 PM WALL TAPER HELPER documented as of this encounter Care Teams Parts Cataloger Relationship Specialty Start Date End Date Nicanor Chang MD PCP - General 08/11/16 Nicanor Chang MD 08/11/16 documented as of this encounter
--- OUTSIDE RECORDS SUMMARY | 2024-06-20 12:25 | XMS_ITS ---
Author Organization [facility] Address [address] [place] [address] Care Team Providers Care Administrative Project Coordinator Name Role Phone Nicanor Chang MD Primary Care Provider [phone] Nicanor Chang MD Unavailable [phone] Renetta Browne MD Unavailable [phone] Active Problems Problem Noted Date Diagnosed Date Avascular necrosis of bones of both hips 024 IKER (obstructive sleep apnea) 09/10/2023 Blepharitis of upper and lower eyelids of both e yes 07/08/2021 Assessment & Plan (07/08/2021 1:44 PM CDT): Warm compresses Daily Nevus of iris of right eye 07/08/2021 Assessment & Plan (07/08/2021 1:43 PM CDT): Flat, photo today, monitor Immunosuppression 06/29/2021 Amblyopia of left eye 01/26/2021 Assessment & Plan (01/26/2021 10:37 AM CDT): H/o left eye amblyopia- Has always weaker H/o patching Retinal hemorrhage noted on examination of left eye 01/26/2021 Assessment & Plan (01/26/2021 10:45 AM CDT): Pt without any symptoms Has 102 fever after surgery and told had kidney infection and given systemic antibiotics Unclear if related vs. Jabari vascular occlusion HTN has been a little low and then labile No CWS. Will monitor Long discussion with patient- She definitely wants to proceed with cataract extraction (CE) right eye (OD). Pseudophakia of both eyes 01/13/2021 Overview (02/24/2021): 01/13/2021- Extraction Cataract - Phacoemulsification And Lens Implant Left Eye - Left Aim: -2.50 02/24/2021- Extraction Cataract - Phacoemulsification And Lens Implant Right Eye - Right Aim: -1.25. Assessment & Plan (07/08/2021 1:44 PM CDT): Trace pco both eyes (OU) Monitor Assessment & Plan (03/09/2021 10:37 AM RESIDENTIAL REAL ESTATE ASSISTANT): Status-post Extraction Cataract - Phacoemulsification And Lens Implant Right Eye - Right 02/24/2021 Best corrected vision is much improved and the patient is pleased with results. Noted mild inflammation left eye (OS)>OD. Will restart pred forte (PF) QID x 1 month both eyes (OU), then taper both eyes (OU) over 3 weeks. Glasses prescription was offered/given for use as needed. The patient was instructed to contact us if any new concerns occur with this eye. Assessment & Plan (02/24/2021 3:05 PM RESIDENTIAL REAL ESTATE ASSISTANT): Post op day 1s/p Extraction Cataract - Phacoemulsification And Lens Implant Right Eye - Right 02/24/2021 No complaints; Doing well Use ofloxacin and prednisolone to operative eye QID Eye shield at bedtime, glasses or shield during the day PO instructions given RTC 1-2 weeks, earlier if any complaints or concerns Assessment & Plan (01/26/2021 10:38 AM CDT): Status-post Extraction Cataract - Phacoemulsification And Lens Implant Left Eye - Left 01/13/2021 Well healed but noted BCVA is not yet 20/20. Pt very happy with results left eye (OS) and eager to proceed with cataract extraction (CE) right eye (OD). No contraindications noted, but pt aware left eye (OS) is not yet at 20/20. However, h/o left eye amblyopia- Has always weaker H/o patching Will continue pred forte (PF) QID left eye (OS). Ok to proceed right eye (OD) if patients wants. Would be happy if this is best left eye (OS) could get. Assessment & Plan (01/13/2021 1:13 PM CDT): Post op day 1s/p Extraction Cataract - Phacoemulsification And Lens Implant Left Eye - Left 01/13/2021 No complaints; Doing well Use ofloxacin and prednisolone to operative eye QID Eye shield at bedtime, glasses or shield during the day PO instructions given RTC 1-2 weeks, earlier if any complaints or concerns Other neutropenia 10/20/2020 Chemotherapy-induced neutropenia 10/20/2020 Encounter for person encountering health service s 10/20/2020 Diplopia 09/02/2020 Overview (11/12/2020): Since 08/21/20- acute onset? ?monocular Assessment & Plan (01/26/2021 10:34 AM CDT): Since 08/21/20- acute onset? ?monocular Better since surgery, but not gone. Still taking medicine for dizziness. Will reassess after cataract extraction (CE) right eye (OD) Assessment & Plan (11/12/2020 11:31 AM CDT): Since 08/21/20- acute onset? ?monocular Unclear history. Will reassess after cataract extraction (CE). H/o normal CT and MRI. H/o migaines which are worse recently. Assessment & Plan (09/17/2020 4:13 PM CDT): Resolved, pt has normal CT and MRI Discussed signs and sx of stroke and to return to ED if they occur Pt does not want Neuro opth consult Monitor Assessment & Plan (09/02/2020 1:38 PM CDT): Resolved, pt has normal CT at ED, Oncologist has ordered MRI Discussed signs and sx of stroke and to return to ED if they occur Monitor Blurred vision, bilateral 09/01/2020 Assessment & Plan (09/02/2020 1:37 PM CDT): Will check blood sugar due to rapid myopic shift Pt took oral pred after blurred visual acuity (VA) occurred Normal mac oct ou. Unreliable visual field (VF) left eye (OS), repeat 2 weeks Neutropenia 05/01/2020 Assessment & Plan (05/02/2020 8:38 AM RESIDENTIAL REAL ESTATE ASSISTANT): 2/2 chemotherapy, CLL. -filgrastim per Onc recs -ANC 1300 Diarrhea 04/30/2020 Assessment & Plan (05/01/2020 10:23 AM RESIDENTIAL REAL ESTATE ASSISTANT): She presents with 2 week history of frequent loose stools, likely related to chemotherapy. Recently ramped up venetoclax about 3 weeks prior. Infectious studies negative thus far including c.diff. -loperamide scheduled, lomotil PRN Assessment & Plan (04/30/2020 12:04 AM RESIDENTIAL REAL ESTATE ASSISTANT): She presents with 2 week history of frequent loose stools, likely related to chemotherapy. Recently ramped up venetoclax about 3 weeks prior Will also send stool infectious studies including C diff Hypokalemia present, will replace IV to give additional volume Failure to thrive in adult 04/30/2020 Assessment & Plan (04/30/2020 10:06 AM RESIDENTIAL REAL ESTATE ASSISTANT): Describes very poor PO intake of at least two week duration, likely related to chemotherapy RD consult Consider calorie count Ensure TID Assessment & Plan (04/30/2020 12:06 AM RESIDENTIAL REAL ESTATE ASSISTANT): Describes very poor PO intake of at least two week duration, likely related to chemotherapy RD consult Consider calorie count Ensure TID Essential hypertension 04/29/2020 Assessment & Plan (04/30/2020 12:02 AM RESIDENTIAL REAL ESTATE ASSISTANT): Continue metoprolol, hctz, spironolactone Assessment & Plan (05/02/2020 8:38 AM RESIDENTIAL REAL ESTATE ASSISTANT): Continue eliot, metoprolol -hold HCTZ in setting of diarrhea and intermittent hypotension Depression 04/29/2020 Assessment & Plan (04/30/2020 12:04 AM RESIDENTIAL REAL ESTATE ASSISTANT): Continue lexapro, nortriptyline Assessment & Plan (04/29/2020 8:03 PM RESIDENTIAL REAL ESTATE ASSISTANT): Continue Nortriptyline, lexapro CLL (chronic lymphocytic leukemia) 09/13/2017 Assessment & Plan (04/30/2020 12:05 AM RESIDENTIAL REAL ESTATE ASSISTANT): Rivas stage 1 CLL (lymphocytosis, diffuse neck lymphadenopathy) currently on C4 of obinatuzumab, ibrutinib and venetoclax OI ppx with acyclovir and bactrim Allopurinol for hyperuricemia Consult oncology in AM Assessment & Plan (04/30/2020 10:05 AM RESIDENTIAL REAL ESTATE ASSISTANT): Rvias stage 1 CLL (lymphocytosis, diffuse neck lymphadenopathy) currently on C4 on obinatuzumab, ibrutinib and venetoclax. Due for C5 this next Sunday, however per her oncologist will likely be held. -OI ppx with acyclovir and bactrim -Allopurinol for hyperuricemia -Onc c/s-appreciate recs Obesity 07/26/2016 Morbid obesity 06/16/2013 History of bariatric surgery 05/02/2010 Current Treatment and Therapy Plans No current plan information found. Past Treatment and Therapy Plans Line Care Plan Name Start Date Discontinue Date Treatment Medications Discontinue Reason Plan Provider IV MAINTENANCE THERAPY PLAN 01/08/2020 06/19/2023 No medications scheduled. Automatic discontinuation of dormant plans Renetta Browne MD Oncology Chemotherapy Treatment Plan Name Start Date Discontinue Date Treatment Medications Discontinue Reason Plan Provider Cycles [id number] - [facility] - Lymphoma- [id number] - Arm A - Ibrutinib / Obinutuzumab / Venetoclax - Cycles 1 and 2 0 02/06/2020 [facility] (EA 9160) obinutuzumab IVPB in 100 mL (C1D1 TEST DOSE)[facility] (EA 9160) obinutuzumab IVPB in 250 [facility]V-[facility] ibrutinib (EA 9160) Therapy Complete Renetta Browne MD 2 of 2 cycles started Oncology Supportive Care Plan Name Start Date Discontinue Date Treatment Medications Discontinue Reason Plan Provider Filgrastim Subcutaneous 10/20/2020 06/19/2023 No medications scheduled. Automatic discontinuation of dormant plans Renetta Browne MD Oncology Treatment (2) Plan Name Start Date Discontinue Date Treatment Medications Discontinue Reason Plan Provider Cycles [id number] - [facility] Lymphoma- [id number] - Arm A - Ibrutinib / Obinutuzumab / Venetoclax - Cycles 3-19 - Low / Intermediate TLS Risk (OUTPATIENT) 03/08/20 20 12/26/2021 [facility] (EA 9160) obinutuzumab IVPB in 250 [facility]INV-[facility] ibrutinib (EA 9160)[facility] venetoclax (ABT-199) (EA 9160) Therapy Complete Renetta Browne MD 19 (17 of 17 cycles) started Specialty Infusion Treatment Plan Name Start Date Discontinue Date Treatment Medications Discontinue Reason Plan Provider Evusheld 150 MG/150 MG Catch-up Dose 07/06/2021 07/28/2021 No medications scheduled. Therapy Complete Renetta Browne MD [facility] - EMERGENCY USE AUTHORIZATION 05/25/2021 06/29/2021 No medications scheduled. Provider Discretion Renetta Browne MD Lifetime Dose Tracking * Chemical Lifetime Dose Automatic Entry Manual Entr y Fluoro Time 2 minutes 2 minutes 0 minutes Air kerma at the reference point (Ka,r) 72.3 mGy 7 2.3 mGy 0 mGy DLP 12,820 mGycm 12,820 mGycm 0 mGycm Resolved Problems Problem Noted Date Diagnosed Date Resolved Date Left corneal abrasion 09/02/20202020 Assessment & Plan (09/02/2020 1:39 PM CDT): Most likely occurred after fall , healing well, monitor Combined forms of age-relate d cataract of right eye 09/01/2020 02/24/2021 Assessment & Plan (01/26/2021 10:33 AM CDT): Patient complains of significant symptoms and problems with activities of daily living due to visually significant disease. R/B/A of cataract surgery discussed with the patient including bleeding, infection, chronic inflammation, need for glasses and/or second surgery, loss of vision, loss of eye, and even very rarely, . Patient's questions were answered and wants to proceed with cataract extraction with intraocular lens implant. Pamphlet given and plans were made to schedule this elective surgery. Recommend phaco/intraocular lens (IOL) OD. Pre-op drops: ofloxacin. Post op drops: Prednisiolone Pre-op pre-operative testing needed: Ascan/automated topography/manual or auto K's. Aim: -1.25 Notes: 15/None Assessment & Plan (11/12/2020 11:36 AM CDT): Patient complains of significant symptoms and problems with activities of daily living due to visually significant disease. R/B/A of cataract surgery discussed with the patient including bleeding, infection, chronic inflammation, need for glasses and/or second surgery, loss of vision, loss of eye, and even very rarely, . Patient's questions were answered and wants to proceed with cataract extraction with intraocular lens implant. Pamphlet given and plans were made to schedule this elective surgery. Recommend phaco/intraocular lens (IOL) OS. Pre-op drops: ofloxacin. Post op drops: Prednisiolone Pre-op pre-operative testing needed: Ascan/automated topography/manual or auto K's. Aim: -2.50 Notes: 15/None Warned may hot help headaches (although her migraines may be triggered by cataract blur) Assessment & Plan (09/17/2020 4:12 PM CDT): Visually sig, refer for cat eval Assessment & Plan (09/02/2020 1:35 PM CDT): Visually sig cat both eyes (OU), refer for cat eval both eyes (OU) Diarrhea 04/30/2020 04/30/2020 Abdominal pain 06/05/2016 06/28/2018 Vomiting 10/18/2015 06/28/2018 Facial pain 04/22/2015 06/28/2018 Overview (07/19/2017): Description: bilateral sinus pain
--- OUTSIDE RECORDS SUMMARY | 2024-06-20 12:25 | XMS_ITS | Clinical Summary ---
Author Organization [facility] Address [facility] [place] [address] Care Team Providers Care Neonatal Pediatric Nurse Name Role Phone Nicanor Chang MD Primary Care Provider [phone] Renetta Browne MD Unavailable [phone] Allergies No known active allergies Medications aspirin EC (ECOTRIN) 81 MG tablet Take 1 tablet (81 mg total) by mouth daily. Active calcium carb-cholecalci ferol (CALTRATE 600+D) 600-20 MG-MCG tablet Take 1 tablet by mouth daily. Active celecoxib (CELEBREX) 100 MG capsule Take 1 capsule (100 mg total) by mouth 2 (two) times daily. Active cyclobenzaprine (FLEXERIL) 10 MG tablet Take 1 tablet (10 mg total) by mouth 3 (three) times daily as needed. 07/07/2022 Active gabapentin (NEURONTIN) 300 MG capsule Take 1 capsule (300 mg total) by mouth 3 (three) times daily. 04/07/2023 Active ibuprofen (MOTRIN) 200 MG tablet Take 2 tablets (400 mg total) by mouth. Active meclizine (ANTIVERT) 25 MG tablet Take 1 tablet (25 mg total) by mouth. 08/17/2022 Active montelukast (SINGULAIR) 10 MG tablet Take 1 tablet (10 mg total) by mouth daily. 04/07/2023 Active nortriptyline (PAMELOR) 25 MG capsule Take 2 capsules (50 mg total) by mouth nightly at bedtime. 04/07/2023 Active olopatadine (PATADAY) 0.2 % Solution Apply 1 drop to eye daily. Active pantoprazole EC (PROTONIX) 40 MG tablet Take 1 tablet (40 mg total) by mouth daily. 04/07/2023 Active polyethylene glycol (GLYCOLAX) 17 GM/SCOOP powder Take 17 g by mouth daily. Active propranolol LA (INDERAL LA) 120 MG 24 hr capsule Take 1 capsule (120 mg total) by mouth daily. 04/07/2023 Active SUMAtriptan (IMITREX) 100 MG tablet Take 1 tablet (100 mg total) by mouth. 03/22/2023 Active famotidine (PEPCID) 40 MG tablet Take 1 tablet (40 mg total) by mouth daily. 08/05/2023 Active felodipine ER (PLENDIL) 5 MG 24 hr tablet Take 1 tablet (5 mg total) by mouth daily. 08/05/2023 Active pravastatin (PRAVACHOL) 20 MG tablet Take 1 tablet (20 mg total) by mouth nightly at bedtime. 08/05/2023 Active Active Problems Problem Noted Date Diagnosed Date Rupture of hip abductor tendon 07/11/2023 Trochanteric bursitis of left hip 07/11/2023 Trochanteric bursitis of both hips 06/07/2023 Chronic lymphocytic leukemia ([facility]) 0 09/13/2017 Overview (05/03/2023): Last Assessment & Plan: Rivas stage 1 CLL (lymphocytosis, diffuse neck lymphadenopathy) currently on C4 of obinatuzumab, ibrutinib and venetoclax OI ppx with acyclovir and bactrim Allopurinol for hyperuricemia Consult oncology in AM Family History Medical History Relation Comments Leukemia Father Hypertension Mother Relation Status Comments Father Mother Social History Tobacco Use Types Packs/Day Years Used Date Smoking Tobacco: Former Cigarettes Q uit: 1989 Smokeless Tobacco: Never Tobacco Cessation:Counseling Given: Not Answered Alcohol Use Standard Drinks/Week Comments Not Currently 0 (1 standard drink = 0.6 oz pur e alcohol) Comments No Sex and Gender Information Value Date Recorded Sex Assigned at Female 04/26/2023 9:50 AM BED TEACHER Legal Sex Female 12:22 PM BED TEACHER Gender Identity Female 04/26/2023 9:50 AM BED TEACHER Sexual Orientation Not on file Last Filed Vital Signs Vital Sign Reading Time Taken Comments Blood Pressure 131/82 08/08/2023 12:00 PM CDT Pulse 77 08/08/2023 12:00 PM CDT Temperature 36.1 C (97 F) 08/08/2023 12:00 PM CDT Respiratory Rate 16 08/08/2023 12:00 PM CDT Oxygen Saturation 97% 08/08/2023 12:00 PM CDT Inhaled Oxygen Concentration - - Weight 74.8 kg (165 lb) 10/16/2023 1:55 PM CDT Height 157.5 cm (5' 2 ) 10/16/2023 1:55 PM CDT Body Mass Index 30.18 10/16/2023 1:55 PM CDT Plan of Treatment Health Maintenance Due Date Last Done Comments Colorectal Cancer Screening Colonoscopy (10 Years) 1954 Hepatitis C 1972 DTaP, Tdap and Td Vaccines (1 - Tdap) 1973 Mammogram Screening 1994 RSV Immunization or 60+ Years (1 - Risk 60-74 years 1-dose series) 2014 Annual Medicare Wellness Visit 06/24/2019 Dexa Scan (General) 06/24/2019 COVID-19 Vaccine ( season) 2023 02/03/2022, 01/04/2021, 07/23/2020, Additional history exists Influenza Adult (#1) 2024 01/07/2019, 04/05/2018, 01/09/2016, Additional history exists Pneumococcal Vaccine: 65+ Years Completed 05/31/2021, 12/29/2019 Zoster Vaccines Completed 10/11/2021, 05/31/2021 Meningococcal B Vaccine Aged Out No l onger eligible based on patient's age to complete this topic Meningococcal Vaccine Aged Out No maurice black eligible based on patient's age to complete this topic RSV Immunizations Under 20 Months Aged Out No longer eligible based on patient's age to complete this topic Insurance MEDICARE MEDICARE Care Teams Neonatal Pediatric Nurse Relationship Specialty Start Date End Date Nicanor Chang MD [address] [place] [id number] PCP - General INTERNAL MEDICINE 04/16/23 Renetta Browne MD [address] [phone] ONCOLOGY 05/03/23
--- OUTSIDE RECORDS SUMMARY | 2024-06-20 12:25 | XMS_ITS | Encounter Summary ---
Author Organization [facility] Address [address] [place] [address] Phone Care Team Providers Care Check Totaler Name Role Phone Nicanor Chang MD Primary Care Provider [phone] Nicanor Chang MD Unavailable [phone] Renetta Browne MD Unavailable [phone] Encounter Details Date Type Department Care Team (Latest Contact Info) Description 08/15/2018 Orders Only [facility] Scanning, Provider Social History Tobacco Use Types Packs/Day Years Used Date Smoking Tobacco: Former Cigarettes 1.5 15 0 11/08/1973 - 11/08/1988 Smokeless Tobacco: Never Comments Unknown Sex and Gender Information Value Date Recorded Sex Assigned at Not on file Legal Sex Female 7:02 AM STUDENT MINISTRY PASTOR Gender Identity Not on file Sexual Orientation Not on file documented as of this encounter Plan of Treatment Not on file documented as of this encounter Procedures Procedure Name Priority Date/Time Associated Diagnosis Comments SCAN - RADIOLOGY/IMAGING 08/15/2018 documented in this encounter Results * SCAN - RADIOLOGY/IMAGING (08/15/2018) Anatomical Region Laterality Modality Other us Provider Scanning Final Result documented in this encounter Visit Diagnoses Not on filedocumented in this encounter Additional Health Concerns Infection Onset Date Last Indicated Resolved Time COVID: Suspected 04/18/2021 04/18/2021 04/18/2021 8:34 PM STUDENT MINISTRY PASTOR COVID: Suspected 05/13/2021 05/13/2021 05/13/2021 3:50 PM STUDENT MINISTRY PASTOR documented as of this encounter Care Teams Check Totaler Relationship Specialty Start Date End Date Nicanor Chang MD PCP - General 08/11/16 Nicanor Chang MD 08/11/16 Renetta Browne MD Medical Oncologist/Health Screener Medical Oncology 06/02/20 documented as of this encounter
--- OUTSIDE RECORDS SUMMARY | 2024-06-20 12:25 | XMS_ITS | Encounter Summary ---
Author Organization [facility] Address [facility] [place] [address] Care Team Providers Care Bilingual Elementary School Teacher Name Role Phone Nicanor Chang MD Primary Care Provider [phone] Renetta Browne MD Unavailable Encounter Details Date Type Department Care Team (Late st Contact Info) Description 05/03/2023 [employer] Message Enc [facility] [place] [address] Sherice Poole, [address] [place] [id number] Visit Follow Up Social History Tobacco Use Types Packs/Day Years Used Date Smoking Tobacco: Former Cigarettes Q uit: 1989 Smokeless Tobacco: Never Comments Unknown Sex and Gender Information Value Date Recorded Sex Assigned at Female 04/26/2023 9:50 AM SENIOR QUALITY TECHNICIAN Legal Sex Female 12:22 PM SENIOR QUALITY TECHNICIAN Gender Identity Female 04/26/2023 9:50 AM SENIOR QUALITY TECHNICIAN Sexual Orientation Not on file documented as of this encounter Plan of Treatment Not on file documented as of this encounter Visit Diagnoses Not on filedocumented in this encounter Care Teams Bilingual Elementary School Teacher Relationship Specialty Start Date End Date Nicanor Chang MD [address] [place] [id number] PCP - General INTERNAL MEDICINE 04/16/23 Renetta Browne MD [address] [place] [phone] ONCOLOGY 05/03/23 documented as of this encounter
--- OUTSIDE RECORDS SUMMARY | 2024-06-20 12:25 | XMS_ITS | Encounter Summary ---
Author Organization [facility] Address [address] [place] [address] Phone Care Team Providers Care Deliverer Food Name Role Phone Nicanor Chang MD Primary Care Provider [phone] Nicanor Chang MD Unavailable [phone] Renetta Browne MD Unavailable Encounter Details Date Type Department Care Team (Latest Contact Info) Description 05/07/2017 Orders Only [facility] Scanning, Provider Social History Tobacco Use Types Packs/Day Years Used Date Smoking Tobacco: Former Comments Unknown Sex and Gender Information Value Date Recorded Sex Assigned at Not on file Legal Sex Female 7:02 AM [employer] Gender Identity Not on file Sexual Orientation Not on file documented as of this encounter Plan of Treatment Not on file documented as of this encounter Procedures Procedure Name Priority Date/Time Associated Diagnosis Comments SCAN - RADIOLOGY/IMAGING 05/07/2017 documented in this encounter Results * SCAN - RADIOLOGY/IMAGING (05/07/2017) Anatomical Region Laterality Modality Other us Provider Scanning Final Result documented in this encounter Visit Diagnoses Not on filedocumented in this encounter Additional Health Concerns Infection Onset Date Last Indicated Resolved Time COVID: Suspected 04/18/2021 04/18/2021 04/18/2021 8:34 PM [employer] COVID: Suspected 05/13/2021 05/13/2021 05/13/2021 3:50 PM [employer] documented as of this encounter Care Teams Deliverer Food Relationship Specialty Start Date End Date Nicanor Chang MD PCP - General 08/11/16 Nicanor Chang MD 08/11/16 Renetta Browne MD Medical Oncologist/Licensed Massage Therapist Medical Oncology 06/02/20 documented as of this encounter
--- OUTSIDE RECORDS SUMMARY | 2024-06-20 12:25 | XMS_ITS | Clinical Summary ---
Author Organization [facility] Address [address] [place] [address] Care Team Providers [facility] Name Role Phone Nicanor Chang MD Primary Care Provider [phone] Nicanor Chang MD Unavailable [phone] Renetta Browne MD Unavailable [phone] Allergies No known active allergies Medications aspirin 81 mg enteric coated tabletIndications:C erebral Thromboembolism Prevention Take 1 tablet (81 mg total) by mouth daily before breakfast Active calcium carbonate-vitamin D3 1,500 mg (600mg elemental) -800 unit per tabletIndications:H ypocalcemia Prevention Take 1 tablet by mouth daily before breakfast Active celecoxib (CeleBREX) 100 mg capsuleIndications: Osteoarthritis Take 1 capsule (100 mg total) by mouth 3 (three) times a day Active SUMAtriptan (IMITREX) 100 mg tabletIndications:M igraine TAKE 1 TABLET FOR MIGRAINE RELIEF. MAY REPEAT 2 HOURS LATER. MAXIMUM 200MG/DAY. 05/09/19 08 Active polyethylene glycol (MIRALAX) 17 gram/dose powderIndications:c onstipation Take 17 g by mouth daily before breakfast Active nortriptyline (PAMELOR) 25 mg capsuleIndications: migraines Take 2 capsules (50 mg total) by mouth nightly 01/02/20 09 Active albuterol HFA (PROVENTIL HFA,VENTOLIN HFA,PROAIR HFA) 90 mcg/actuation inhaler Inhale 2 puffs every 4 (four) hours as needed for wheezing 01/02/20 Active montelukast (SINGULAIR) 10 mg tabletIndications:S easonal Allergic Rhinitis Take 1 tablet (10 mg total) by mouth nightly 01/02/20 Active betamethasone, augmented, (DIPROLENE) 0.05 % lotion Apply 1 application topically 2 (two) times a day as needed (itching) 10/14/19 19 Active lidocaine-prilocain e (lidocaine-prilocai ne) cream Apply topically as needed for pain 30 g 3 04/04/20 20 Active propranolol XL (INNOPRAN XL) 120 mg 24 hr capsuleIndications: Migraine Prevention,hyperten brooke Take 1 capsule (120 mg total) by mouth nightly 06/10/19 21 Active olopatadine (PATADAY) 0.2 % ophthalmic solutionIndications :Allergic Conjunctivitis Administer 1 drop into both eyes nightly Active ibuprofen (ADVIL,MOTRIN) 200 mg tab/cap Take 2 tablet/capsule (400 mg total) by mouth every 6 (six) hours as needed for pain Active gabapentin (NEURONTIN) 300 mg capsuleIndications: Neuropathic Pain Take 1 capsule (300 mg total) by mouth 2 (two) times a day 180 capsule 3 01/20/20 21 Active acetaminophen-codei ne (TYLENOL with CODEINE #3) 300-30 mg per tablet Take 1 tablet by mouth 2 (two) times a day as needed 05/31/19 22 Active cyclobenzaprine (FLEXERIL) 10 mg tablet TAKE 1/2 -1 TABLET BY MOUTH EVERY 8 HOURS NEEDED 05/24/[address] (PROTONIX) 40 mg EC tabletIndications:T reatment of Non-Bleeding Gastric Disorder Take 1 tablet (40 mg total) by mouth daily before breakfast 30 tablet 2 07/08/19 22 Active meclizine (ANTIVERT) 25 mg tablet Take 1 tablet (25 mg total) by mouth 3 (three) times a day as needed for dizziness 30 tablet 3 08/18/19 23 Active escitalopram (LEXAPRO) 20 mg tablet Take 1 tablet (20 mg total) by mouth every morning 90 tablet 3 09/22/19 23 Active pravastatin (PRAVACHOL) 20 mg tablet Take 1 tablet (20 mg total) by mouth nightly 12/13/19 24 Active Active Problems Problem Noted Date Diagnosed [...] Monitor Assessment & Plan (03/09/2021 10:37 AM ADMINISTRATIVE PERSONAL ASSISTANT): Status-post Extraction Cataract - Phacoemulsification And [...] eye. Assessment & Plan (02/24/2021 3:05 PM ADMINISTRATIVE PERSONAL ASSISTANT): Post op day 1s/p Extraction Cataract [...] 05/01/2020 Assessment & Plan (05/02/2020 8:38 AM ADMINISTRATIVE PERSONAL ASSISTANT): 2/2 chemotherapy, CLL. -filgrastim per Onc recs -ANC 1300 Diarrhea 04/30/2020 Assessment & Plan (05/01/2020 10:23 AM ADMINISTRATIVE PERSONAL ASSISTANT): She presents with 2 week history of frequent loose stools, likely related to chemotherapy. Recently ramped up venetoclax about 3 weeks prior. Infectious studies negative thus far including c.diff. -loperamide scheduled, lomotil PRN Assessment & Plan (04/30/2020 12:04 AM ADMINISTRATIVE PERSONAL ASSISTANT): She presents with 2 week history of frequent loose stools, likely related to chemotherapy. Recently ramped up venetoclax about 3 weeks prior Will also send stool infectious studies including C diff Hypokalemia present, will replace IV to give additional volume Failure to thrive in adult 04/30/2020 Assessment & Plan (04/30/2020 10:06 AM ADMINISTRATIVE PERSONAL ASSISTANT): Describes very poor PO intake of at least two week duration, likely related to chemotherapy RD consult Consider calorie count Ensure TID Assessment & Plan (04/30/2020 12:06 AM ADMINISTRATIVE PERSONAL ASSISTANT): Describes very poor PO intake of at least two week duration, likely related to chemotherapy RD consult Consider calorie count Ensure TID Essential hypertension 04/29/2020 Assessment & Plan (04/30/2020 12:02 AM ADMINISTRATIVE PERSONAL ASSISTANT): Continue metoprolol, hctz, spironolactone Assessment & Plan (05/02/2020 8:38 AM ADMINISTRATIVE PERSONAL ASSISTANT): Continue eliot, metoprolol -hold HCTZ in setting of diarrhea and intermittent hypotension Depression 04/29/2020 Assessment & Plan (04/30/2020 12:04 AM ADMINISTRATIVE PERSONAL ASSISTANT): Continue lexapro, nortriptyline Assessment & Plan (04/29/2020 8:03 PM ADMINISTRATIVE PERSONAL ASSISTANT): Continue Nortriptyline, lexapro CLL (chronic lymphocytic leukemia) 09/13/2017 Assessment & Plan (04/30/2020 12:05 AM ADMINISTRATIVE PERSONAL ASSISTANT): Rivas stage 1 CLL (lymphocytosis, diffuse neck lymphadenopathy) currently on C4 of obinatuzumab, ibrutinib and venetoclax OI ppx with acyclovir and bactrim Allopurinol for hyperuricemia Consult oncology in AM Assessment & Plan (04/30/2020 10:05 AM ADMINISTRATIVE PERSONAL ASSISTANT): Rivas stage 1 CLL (lymphocytosis, diffuse neck lymphadenopathy) currently on C4 on obinatuzumab, ibrutinib and venetoclax. Due for C5 this next Sunday, however per her oncologist will likely be held. -OI ppx with acyclovir and bactrim -Allopurinol for hyperuricemia -Onc c/s-appreciate recs Obesity 07/26/2016 Morbid obesity 06/16/2013 History of bariatric surgery 05/02/2010 Resolved Problems Problem Noted Date Diagnosed Date [...] 06/28/2018 Overview (07/19/2017): Description: bilateral sinus pain Encounters Date Type Department Care Team Description 06/19/2024 Documentation [facility] [address] [facility] Floor 6 [place] [address] Dee Dee Bates, GABRIELA 06/18/2024 1:00 PM CDT Office Visit [facility] [address] [facility] [address] [place] [phone] Renetta Browne MD CLL (chronic lymphocytic leukemia) (HCC) (Primary Dx) 06/18/2024 12:00 PM CDT Clinical Support [facility] [address] [facility] [place] [phone] CLL (chronic lymphocytic leukemia) (HCC) 06/18/2024 10:05 AM CDT - 06/18/2024 11:59 PM CDT Hospital Encounter [facility] [address] [place] [address] Renetta Browne MD CLL (chronic lymphocytic leukemia) (HCC) Discharge Disposition: Discharge to home or self care 05/22/2024 4:40 PM ADMINISTRATIVE PERSONAL ASSISTANT Telemedicine [facility]) - [facility] [address] [facility] [address] [place] [address] Reyna Abernathy MD IKER (obstructive sleep apnea) (Primary Dx); Intolerance of continuous positive airway pressure (CPAP) ventilation 05/22/2024 Telephone [facility] [address] [place] [phone] May Bello, GABRIELA 05/21/2024 10:20 AM ADMINISTRATIVE PERSONAL ASSISTANT Procedure visit [facility] Testing [address] [place] [address] [place] [address] [place] [address] Neuropathy; NPH (normal pressure hydrocephalus) ([facility]); Cerebrovascular accident (CVA), unspecified mechanism (HCC); Numbness and tingling 05/21/2024 Telephone [facility] [address] [place] [phone] Jody Milner RN 05/20/2024 Orders Only [facility] [address] [place] [address] 6th [place] [address] [place] [phone] Jethro Dias MD Movement disorder (Primary Dx) 05/19/2024 Telephone [facility] [address] [place] [phone] May Bello RN 05/19/2024 Telephone [facility] [address] [place] [phone] Jody Milner RN 05/17/2024 12:34 PM ADMINISTRATIVE PERSONAL ASSISTANT - 05/17/2024 11:59 PM ADMINISTRATIVE PERSONAL ASSISTANT Hospital Encounter [facility] [address] [place] [address] Movement disorder; Abnormal gait Discharge Disposition: Discharge to home or self care 05/09/2024 11:45 AM ADMINISTRATIVE PERSONAL ASSISTANT Office Visit [facility] [address] [facility] [address] [place] [phone] Ida Vieira MD IKER (obstructive sleep apnea) (Primary Dx); Hypersomnia; Obesity, unspecified class, unspecified obesity type, unspecified whether serious comorbidity present 05/09/2024 Orders Only [facility] [address] [place] [address] [address] [place] [phone] Reynold Mcneal MD 04/04/2024 Orders Only [facility] [address] [facility] 6th [place] [address] [place] [address] Jethro Dias MD Movement disorder (Primary Dx); Abnormal gait; History of sensory changes; Neuropathy; NPH (normal pressure hydrocephalus) (HCC); Cerebrovascular accident (CVA), unspecified mechanism (HCC); Numbness and tingling 03/24/2024 1:00 PM ADMINISTRATIVE PERSONAL ASSISTANT Office Visit [facility] [address] [place] [phone] Jethro Dias MD Abnormal gait (Primary Dx) 03/24/2024 12:00 PM ADMINISTRATIVE PERSONAL ASSISTANT Clinical Support [facility] [address] [place] [phone] Movement disorder from Last 3 Months Immunizations Immunization Administration Dates Next Due Influenza, Quadrivalent, Hig h Dose, Preservative Free, Intrr 12/24/2020,12/29/2019 Influenza, Quadrivalent, Split, Intramuscular Influenza, Quadrivalent, Spl it, Preservative Free, Intramuscular 01/07/2019,04/05/2018 Influenza, Trivalent, IM (MDV) 12/16/2012,2011 Influenza, Trivalent, Preservative Free, Intramu scular 01/09/2016 Moderna SARS-CoV-2 Monovalent Vaccination (12+ Y RS) 01/04/2021,07/23/2020 Pneumococcal Conjugate PCV 13 12/29/2019 Surgical History Surgery Date Site/Laterality Comments PORT PLACEMENT CHEST >5 YEARS 01/15/2020 N/A CHOLECYSTECTOMY 04/09/1989 - 04/08/1990 HYSTERECTOMY 04/09/1979 - 04/08/1980 BARIATRIC SURGERY 04/09/2005 - 04/08/2006 CATARACT EXTRACTION 02/24/2021 Right [id number] of power 23.5D AIM: -1.25 BREAST BIOPSY 08/23/2022 Left Medical History Medical History Date Comments Sleep apnea HTN (hypertension) HLD (hyperlipidemia) CVA (cerebral vascular accident) (HCC) Obesity CLL (chronic lymphocytic leukemia) (HCC) GERD (gastroesophageal reflux disease) Asthma Irritable bowel syndrome Headache Lymphoma (HCC) Fibromyalgia Arthritis Family History Medical History Relation Name Comments Emphysema Brother Heart failure Brother Family history of congestive heart failure - (Added by TW Conv) Diabetes Father Family history of diabetes mellitus - (Added by TW Conv) Heart attack Father Family history of myocardial infarction - (Added by TW Conv) Leukemia Father Family history of leukemia - (Added by TW Conv) Obesity Father Family history of obesity - (Added by TW Conv) Cancer Maternal Grandfather Family history of malignant neoplasm - (Added by TW Conv) Obesity Mother Family history of obesity - (Added by TW Conv) Stroke Mother Family history of cerebrovascular accident - (Added by TW Conv) Obesity Other 1 Family history of obesity - (Added by TW Conv) Diabetes Other 2 Family history of diabetes mellitus - (Added by TW Conv) Heart attack Other 3 Family history of myocardial infarction - (Added by TW Conv) Cancer Other 4 Family history of malignant neoplasm - (Added by TW Conv) Cancer Paternal Grandfather Family history of malignant neoplasm - (Added by TW Conv) Cancer Paternal Grandmother Family history of malignant neoplasm - (Added by TW Conv) Emphysema Sister 1 Family history of emphysema - (Added by TW Conv) Multiple myeloma Sister 1 Emphysema Sister 2 Heart attack Sister 2 Multiple myeloma Sister 2 Family hist ory of multiple myeloma - (Added by TW Conv) No Known Problems Sister 3 Anesthesia problems Neg Hx Relation Name Status Comments Brother Father Maternal Grandfather Mother Other 1 Other 2 Other 3 Other 4 Paternal Grandfather Paternal Grandmother Sister 1 Sister 2 Sister 3 Alive Social History Tobacco Use Types Packs/Day Years Used Date Smoking Tobacco: Former Cigarettes 1.5 15 0 11/08/1973 - 11/08/1988 Smokeless Tobacco: Never Tobacco Cessation:Counseling Given: Not Answered AUDIT-C Answer Date Recorded Q1: How often [...] on file Legal Sex Female 7:02 AM ADMINISTRATIVE PERSONAL ASSISTANT Gender Identity Not on file Sexual Orientation Not on file Obstetrics History Last Filed Vital Signs Vital Sign Reading Time Taken Comments Blood Pressure 142/62 06/18/2024 1:09 PM CDT Pulse 64 06/18/2024 1:09 PM CDT Temperature 36.1 C (97 F) 06/18/2024 1:09 PM CDT Respiratory Rate 17 06/18/2024 1:09 PM CDT Oxygen Saturation 98% 06/18/2024 1:09 PM CDT Inhaled Oxygen Concentration - - Weight 81.7 kg (180 lb 3.2 oz) 06/18/2024 1:09 P M CDT Height 157.7 cm (5' 2.09 ) 06/18/2024 1:09 PM CD T Body Mass Index 32.87 06/18/2024 1:09 PM CDT Plan of Treatment Health Maintenance Due Date Last Done Comments Breast Cancer Screening-Mammogram 1954 Colon Cancer Screening-Colonoscopy 1954 Osteoporosis Screening-Bone Density Scan 1954 DTaP/Tdap/Td Vaccine (1 - Tdap) 1965 Hepatitis B Screening 1972 Zoster Vaccine (1 of 2) 1973 Well Visit 65+ 06/24/2019 Pneumococcal vaccine 65+ (2 of 2 - PPSV23) 02/23/2020 12/29/2019 Covid-19 Vaccine (4 - 2023-2 5 season) 2023 01/04/2021, 07/23/2020, 06/25/2020 Influenza Vaccine (#1) 2023 , 12/29/2019, 01/07/2019, Additional history exists Fall Risk Assessment 02/18/2025 02/19/2024 Depression Screening 03/24/2025 03/24/2024 Hepatitis C Screening Completed 01/01/2020, 014 Medical Devices Implanted Type Area Plastic Panel Installer Device Identifier Shelf Expiration Date Model / Serial / Lot [employer] [id number] - [id number] - [id number] Implanted:Qty: 1 on 01/13/2021 by Chanelle Anthony MD at [facility] Lens Left: Eye [employer] 07/08/2023 [id number] / [id number] / Ang[employer] [id number] Xcela 8fr 1.6mm 1 Lumen Power Injectable Attach Catheter Fill - [id number] Implanted:Qty: 1 on 01/15/2020 at [facility] [employer] 09/21/2024 [id number] / / [id number] [employer] [id number] - [id number] - [id number] Implanted:Qty: 1 on 02/24/2021 by Chanelle Anthony MD at [facility] [employer] 11/07/2023 [id number] / [id number] / Bard Peripheral Vascular Ultraclip Bard 17ga 10cm 2 Trigger Permanent Ultrasound [id number] - [id number] Implanted:Qty: 1 on 08/23/2022 at [facility] Left: Breast [employer] [id number] / / Procedures Procedure Name Priority Date/Time Associated Diagnosis Comments EGFR Routine 06/18/2024 12:05 PM CDT CLL (chronic lymphocytic leukemia) (HCC) DIFFERENTIAL AUTO Routine 06/18/2024 12: 05 PM CDT CLL (chronic lymphocytic leukemia) (HCC) CBC WITH AUTO DIFFERENTIAL Routine 06/18/2024 12:05 PM CDT CLL (chronic lymphocytic leukemia) (HCC) COMPREHENSIVE METABOLIC PANEL Routine 06/18/2024 12:05 PM CDT CLL (chronic lymphocytic leukemia) (HCC) LACTATE DEHYDROGENASE Routine 06/18/2024 12:05 PM CDT CLL (chronic lymphocytic leukemia) (HCC) CT CHEST ABDOMEN PELVIS W CONTRAST Schedule ANASTASIYA, Read ANASTASIYA (Appt Today, Awaiting Results) 06/18/2024 10:26 AM CDT CLL (chronic lymphocytic leukemia) (HCC) CT SOFT TISSUE NECK W CONTRAST Schedule ANASTASIYA, Read ANASTASIYA (Appt Today, Awaiting Results) 06/18/2024 10:26 AM CDT CLL (chronic lymphocytic leukemia) (HCC) POC ISTAT Routine 06/18/2024 10:16 AM CDT EMG/NCV Routine 05/21/2024 10:16 AM ADMINISTRATIVE PERSONAL ASSISTANT Neuropathy NPH (normal pressure hydrocephalus) (HCC) Cerebrovascular accident (CVA), unspecified mechanism (HCC) Numbness and tingling MRI SPINE THORACIC LUMBAR WO CONTRAST Schedule Routine, Read Routine (OP Routine) 05/17/2024 1:30 PM ADMINISTRATIVE PERSONAL ASSISTANT Movement disorder Abnormal gait SLEEP STUDY FINAL REPORT Routine 05/09/2024 11:29 AM ADMINISTRATIVE PERSONAL ASSISTANT HEPATITIS C ANTIBODY Routine 01/01/2020 12:41 PM CDT CLL (chronic lymphocytic leukemia) (HCC) from Last 3 Months or Most Recently Relevant to Health Maintenance Results * eGFR (06/18/2024 12:05 PM CDT) eGFR 61 >=60 mL/min/1. 73 m2 Comment: Interpretive Data Reference Interval Normal >/= 90 mL/min/1.73m2 Mildly decreased* 60 - 89 mL/min/1.73m2 Mildly to moderately decreased 45 - 59 mL/min/1.73m2 Moderately to severely decreased 30 - 44 mL/min/1.73m2 Severely decreased 15 - 29 mL/min/1.73m2 Kidney Failure < 15 mL/min/1.73m2 *Relative to young adult level Estimated glomerular filtration rate is determined by the 2020 CKD-EPI equation recommended by the National Kidney Foundation (A Unifying Approach to GFR Estimation: Recommendations of the NKF-ASK Task Force on Reassessing the Inclusion of Race in Diagnosing Kidney Disease, JASN 2020). The CKD-EPI equation should not be used for patients with unstable renal function and has not been validated in children and those over 70. Current interpretive data was last reviewed 2021. Testing performed by: [facility], [address] [place] [address] Blood 06/18/2024 12:0 5 PM CDT 06/18/2024 12:17 PM CDT us Jessie Bone RAILWAY YARD ASSISTANT LAB BLOOD ORDERABLES Final Result [facility] [address] Department [place] [address] * Differential, auto (06/18/2024 12:05 PM CDT) Neutrophil abs 3.6 1.5 - 6.5 K/cumm Comment:Testing performed by : [facility], [facility] [address], [address] [place] [address] Imm gran abs 0.0 0.0 - 0.1 K/cumm FANNY AVILA Comment:Testing performed by : [facility], [facility] 2, [address] [place] [address] Lymphocyte abs 1.5 0.8 - 3.3 K/cumm FANNY AVILA Comment:Testing performed by : [facility], [address] [place] [address] Monocyte abs 0.4 0.2 - 0.8 K/cumm FANNY AVILA Comment:Testing performed by : [facility] [address], [address] [place] [address] Eosinophil abs 0.2 0.0 - 0.5 K/cumm CERNER BJWCH Comment:Testing performed by : [facility], [facility] [address], [address] [place] [address] Basophil abs 0.0 0.0 - 0.1 K/cumm CERNER BJWCH Comment:Testing performed by : [facility], [facility] [address], [address] [place] [address] Neutrophil pct 63.6 % CERNER BJWCH Comment: Interpretive Data Percent cell count reference ranges are not reported, since discordance with absolute values may lead to misinterpretation of CBC data. Current Interpretive Data was last revised on 2017. Testing performed by: [facility], [facility] [address], [address] [place] [address] Imm gran pct 0.4 % CERNER [facility] Comment: Interpretive Data Percent cell count reference ranges are not reported, since discordance with absolute values may lead to misinterpretation of CBC data. Current Interpretive Data was last revised on 2017. Testing performed by: [facility], [facility] [address], [address] [place] [address] Lymphocyte pct 25.8 % CERNER [facility] Comment: Interpretive Data Percent cell count reference ranges are not reported, since discordance with absolute values may lead to misinterpretation of CBC data. Current Interpretive Data was last revised on 2017. Testing performed by: [facility], [facility] [address], [address] [place] [address] Monocyte pct 6.8 % CERNER [facility] Comment: Interpretive Data Percent cell count reference ranges are not reported, since discordance with absolute values may lead to misinterpretation of CBC data. Current Interpretive Data was last revised on 2017. Testing performed by: [facility], [facility] [address], [address] [place] [place] [address] Eosinophil pct 3.0 % CERNER [facility] Comment: Interpretive Data Percent cell count reference ranges are not reported, since discordance with absolute values may lead to misinterpretation of CBC data. Current Interpretive Data was last revised on 2017. Testing performed by: [facility], [address] [place] [place] [address] Basophil pct 0.4 % FANNY AVILA Comment: Interpretive Data Percent cell count reference ranges are not reported, since discordance with absolute values may lead to misinterpretation of CBC data. Current Interpretive Data was last revised on 2017. Testing performed by: [facility], [address] [place] [place] [address] Blood 06/18/2024 12:0 5 PM CDT 06/18/2024 12:08 PM CDT Jessie Bone RAILWAY YARD ASSISTANT LAB BLOOD ORDERABLES Final Result [facility] [address] [facility] Department [place] [address] * CBC with auto differential (06/18/2024 12:05 PM CDT) WBC 5.7 3.8 - 9.9 K/cumm Comment:Testing performed by : [facility] 2, [address] [place] [address] Hgb 12.6 11.9 - 15.5 g/dL FANNY AVILA Comment:Testing performed by : [facility] 2, [address] [place] [address] Hct 38.6 35.6 - 45.5 % FANNY AVILA Comment:Testing performed by : [facility], [address] [place] [address] Plt 172 150 - 400 K/cumm FANNY AVILA Comment:Testing performed by : [facility] 2, [address] [place] [address] MPV 9.5 9.1 - 12.3 fL FANNY AVILA Comment:Testing performed by : [facility], [address] [place] [address] RBC 4.05 3.90 - 5.20 M/cumm FANNY REYNAGACH Comment:Testing performed by : [facility], [facility] [address], [address] [place] [place] [address] MCV 95 81 - 96 fL FANNY REYNAGACH Comment:Testing performed by : [facility] [address], [address] [place] [address] MCH 31.1 27.1 - 33.3 pg [facility]NY RED[facility] Comment:Testing performed by : [facility], [facility] 2, [address] [place] [address] MCHC 32.6 32.3 - 35.7 g/dL FANNY REYNAGACH Comment:Testing performed by : [facility] 2, [address] [place] [address] RDW CV 13.1 11.1 - 14.9 % [facility] Comment:Testing performed by : [place] [address], [address] [place] [address] RDW SD 46.4 35.7 - 48.1 fL [facility] Comment:Testing performed by : [facility], [address] [place] [place] [address] Blood 06/18/2024 12:0 5 PM CDT 06/18/2024 12:08 PM CDT Jessie Bone NP LAB BLOOD ORDERABLES Final Result [facility] [address] Department [place] [address] * Lactate dehydrogenase (LD) (06/18/2024 12:05 PM CDT) Lactate dehydrogenase (LDH) 181 100 - 250 Units/L Comment:Testing performed by : [facility], [address] [place] [address] Blood 06/18/2024 12:0 5 PM CDT 06/18/2024 12:17 PM CDT Jessie Bone NP LAB BLOOD ORDERABLES Final Result [facility] [address] Department [place] [address] * Comprehensive metabolic panel (06/18/2024 12:05 PM CDT) Sodium 141 135 - 145 mmol/L Comment:Testing performed by : [facility], [address], [place] [address] Potassium, pl 3.8 3.3 - 4.9 mmol/L CERWESTLEY BJWCH Comment:Testing performed by : [facility], [address] [address], [place] [address] Chloride 105 97 - 110 mmol/L [facility] Comment:Testing performed by : [facility], [id number], [place] [address] CO2 25 22 - 32 mmol/L [facility] Comment:Testing performed by : [facility], [address], [place] [address] Anion gap 11 2 - 15 mmol/L [facility] Comment:Testing performed by : [facility], [address], [place] [address] BUN 13 6 - 25 mg/dL [facility] Comment:Testing performed by : [facility], [address], [place] [address] Creatinine 1.00 0.60 - 1.10 mg/dL [facility] Comment:Testing performed by : [facility], [address], [place] [address] Glucose 141 70 - 199 mg/dL [facility] Comment: Interpretive Data Fasting glucose >/= 126 mg/dl is diagnostic for diabetes. Fasting is defined as no caloric intake for at least 8 hours. Fasting glucose between 100 mg/dl to 125 mg/dl is diagnostic of prediabetes. In a patient with classic symptoms of hyperglycemia or hyperglycemic crisis, a random glucose >/= 200 mg/dl is diagnostic for diabetes. In the absence of unequivocal hyperglycemia, results should be confirmed by repeat testing. The classification and Diagnosis of Diabetes Diabetes Care 202; 46: S19-S40. Current interpretive data was last revised 2022. Testing performed by: [facility], [address], [place] [address] Calcium 9.3 8.5 - 10.3 mg/dL [facility] Comment:Testing performed by : [facility], [address], [place] [address] Bilirubin, total 0.3 0.1 - 1.2 mg/dL [facility] Comment:Testing performed by : [facility], [address], [place] [address] Protein, pl 6.5 6.5 - 8.5 g/dL [facility] Comment:Testing performed by : [facility], [address], [place] [address] Albumin 4.6 3.5 - 5.0 g/dL [facility] Comment:Testing performed by : [facility], [address], [place] [address] Alk phos 115 40 - 130 Units/L [facility] Comment:Testing performed by : [facility], [address], [place] [address] ALT 16 7 - 45 Units/L [facility] Comment:Testing performed by : [facility], [address], [place] [address] AST 16 10 - 45 Units/L [facility] Comment:Testing performed by : [facility], [address], [place] [address] Blood 06/18/2024 12:0 5 PM CDT 06/18/2024 12:17 PM CDT us Jessie Bone NP LAB BLOOD ORDERABLES Final Result [facility] [address] [place] [address] * CT chest abdomen pelvis with contrast (06/18/2024 10:26 AM CDT) Anatomical Region Laterality Modality Body N/A Computed Tomogra phy 06/18/2024 10:5 6 AM CDT Impressions 06/18/2024 11:03 AM CDT 1. No suspicious lymphadenopathy in the chest, abdomen or pelvis. 2. Lap band with unchanged thickening and distention of the distal esophagus which is filled with ingested material. This appearance is unchanged compared to 02/21/2023 and increases patient's risk for aspiration and pneumonia. Recommend correlation with desired degree of lap band tightness. 3. Stable to increasing tree-in-bud nodules within the upper lobes most compatible with a bronchiolitis and associated mucous plugging. Attention follow-up is recommended. Dictated by: Patricia Kat MD The radiology attending physician has personally reviewed this study, and had reviewed and/or edited this written report and agrees with it. Electronically signed by: Arnie Anthony M.D. Narrative 06/18/2024 11:03 AM CDT EXAMINATION: Computed tomography of the chest, abdomen and pelvis with intravenous contrast HISTORY: Chronic lymphocytic leukemia TECHNIQUE: Transaxial computed tomographic images of the chest, abdomen and pelvis were obtained with intravenous contrast according to the standard protocol after the uneventful administration of 135 mL Opti-Ray 350 intravenous contrast. COMPARISON: CT on 02/21/2023 FINDINGS: Right-sided chest port is seen with the tip terminating in the right atrium. Stable size of 1.3 x 0.4 cm nodule in the left lower lobe. No other suspicious pulmonary nodules. Central airways widely patent. Upper lobe predominant three-minute nodularity slightly worse compared to prior study and likely sequelae of bronchiolitis. Attention on follow-up imaging is recommended. The esophagus is distended distally with a small hiatal hernia and layering into the fluid that includes high density material. This increases risk for aspiration. Findings a lap band procedure. The stomach has normal appearance. Normal appearance of small and large bowel. No suspicious liver lesions. Multiple hypoattenuating lesions throughout the liver are stable dating back to 12/27/2021 and 6. There is no suspicious hepatic lesion. Status post cholecystectomy. Spleen and bilateral adrenals and pancreas are normal. There is no mediastinal hilar or axillary lymphadenopathy. No lymphadenopathy in the abdomen or pelvis. There are no suspicious renal lesions. The kidneys enhance symmetrically. There is no hydronephrosis or stones. No suspicious osseous lesions. Procedure Note Arnie Anthony MD - 06/18/2024 EXAMINATION: Computed tomography of the chest, abdomen and pelvis with intravenous contrast HISTORY: Chronic lymphocytic leukemia TECHNIQUE: Transaxial computed tomographic images of the chest, abdomen and pelvis were obtained with intravenous contrast according to the standard protocol after the uneventful administration of 135 mL Opti-Ray 350 intravenous contrast. COMPARISON: CT on 02/21/2023 FINDINGS: Right-sided chest port is seen with the tip terminating in the right atrium. Stable size of 1.3 x 0.4 cm nodule in the left lower lobe. No other suspicious pulmonary nodules. Central airways widely patent. Upper lobe predominant three-minute nodularity slightly worse compared to prior study and likely sequelae of bronchiolitis. Attention on follow-up imaging is recommended. The esophagus is distended distally with a small hiatal hernia and layering into the fluid that includes high density material. This increases risk for aspiration. Findings a lap band procedure. The stomach has normal appearance. Normal appearance of small and large bowel. No suspicious liver lesions. Multiple hypoattenuating lesions throughout the liver are stable dating back to 12/27/2021 and 6. There is no suspicious hepatic lesion. Status post cholecystectomy. Spleen and bilateral adrenals and pancreas are normal. There is no mediastinal hilar or axillary lymphadenopathy. No lymphadenopathy in the abdomen or pelvis. There are no suspicious renal lesions. The kidneys enhance symmetrically. There is no hydronephrosis or stones. No suspicious osseous lesions. IMPRESSION: 1. No suspicious lymphadenopathy in the chest, abdomen or pelvis. 2. Lap band with unchanged thickening and distention of the distal esophagus which is filled with ingested material. This appearance is unchanged compared to 02/21/2023 and increases patient's risk for aspiration and pneumonia. Recommend correlation with desired degree of lap band tightness. 3. Stable to increasing tree-in-bud nodules within the upper lobes most compatible with a bronchiolitis and associated mucous plugging. Attention follow-up is recommended. Dictated by: Patricia Kat MD The radiology attending physician has personally reviewed this study, and had reviewed and/or edited this written report and agrees with it. Electronically signed by: Arnie Anthony M.D. Renetta Browne MD IM CT PROCEDURES Final Resul t * CT Neck Soft Tissue W Contrast (06/18/2024 10:26 AM CDT) Anatomical Region Laterality Modality Head and Neck N/A Computed Tomogra phy 06/18/2024 10:4 6 AM CDT Impressions 06/18/2024 11:21 AM CDT No cervical lymphadenopathy. Dictated by: Danyell Huang D.O. The radiology attending physician has personally reviewed this study, and had reviewed and/or edited this written report and agrees with it. Electronically signed by: Ruperto Pena M.D. Narrative 06/18/2024 11:21 AM CDT EXAMINATION: CT of the neck with contrast HISTORY: Chronic lymphocytic leukemia TECHNIQUE: CT of the neck was performed according to the standard protocol with intravenous contrast. Contrast information: 135 mL Optiray-350 IV COMPARISON: CT soft tissue neck 02/21/2023 and 08/23/2022 FINDINGS: Scattered subcentimeter lymph nodes are seen in the neck. None are pathologically enlarged or abnormally enhancing. The muscles of the neck are normal. Vessels of the neck demonstrate normal course and caliber. Fascial planes are preserved and the deep spaces of the neck are normal. The visualized airway is widely patent. The base of the skull and the temporal bones are normal. Limited views of the brain including the cerebellum and brainstem are normal. The limited view of the [place] is unremarkable. Bilateral lens replacement The spinal canal is normal in caliber. Intervertebral disk heights are normal. Neural foramina are normal. Limited examination of the superior thorax shows no pulmonary infiltrate, suspicious nodules, or pleural effusions. Right chest wall wall port A catheter with tip terminating within the filter. Atherosclerotic calcifications of the thoracic aorta. Partially visualized thickening and fluid within the thoracic esophagus could represent esophagitis. Refer to dedicated CT chest performed concurrently for detailed findings Procedure Note Ruperto Pena MD - 03/12/2025 EXAMINATION: CT of the neck with contrast HISTORY: Chronic lymphocytic leukemia TECHNIQUE: CT of the neck was performed according to the standard protocol with intravenous contrast. Contrast information: 135 mL Optiray-350 IV COMPARISON: CT soft tissue neck 02/21/2023 and 08/23/2022 FINDINGS: Scattered subcentimeter lymph nodes are seen in the neck. None are pathologically enlarged or abnormally enhancing. The muscles of the neck are normal. Vessels of the neck demonstrate normal course and caliber. Fascial planes are preserved and the deep spaces of the neck are normal. The visualized airway is widely patent. The base of the skull and the temporal bones are normal. Limited views of the brain including the cerebellum and brainstem are normal. The limited view of the [place] is unremarkable. Bilateral lens replacement The spinal canal is normal in caliber. Intervertebral disk heights are normal. Neural foramina are normal. Limited examination of the superior thorax shows no pulmonary infiltrate, suspicious nodules, or pleural effusions. Right chest wall wall port A catheter with tip terminating within the filter. Atherosclerotic calcifications of the thoracic aorta. Partially visualized thickening and fluid within the thoracic esophagus could represent esophagitis. Refer to dedicated CT chest performed concurrently for detailed findings IMPRESSION: No cervical lymphadenopathy. Dictated by: Danyell Huang D.O. The radiology attending physician has personally reviewed this study, and had reviewed and/or edited this written report and agrees with it. Electronically signed by: Ruperto Pena M.D. Renetta Browne MD IMG CT PROCEDURES Final Resul t * POC ISTAT (06/18/2024 10:16 AM CDT) Creatinine, POC, bld 0.9 0.6 - 1.3 mg/dL POC Device Number [id number] [facility] POC Performer [id number] [facility] Blood 06/18/2024 10:1 6 AM CDT 06/18/2024 10:16 AM CDT Renetta Browne MD LAB BLOOD ORDERABLES Final Re sult [facility] [id number] [facility]. Department [place] [address] * EMG/NCV (05/21/2024 10:16 AM ADMINISTRATIVE PERSONAL ASSISTANT) Anatomical Region Laterality Modality Other Narrative 05/21/2024 10:16 AM ADMINISTRATIVE PERSONAL ASSISTANT Bhavesh Rangel MD 05/21/2024 11:13 AM EMG/NCV - Date/Time: 05/21/2024 10:16 AM Performed by: Bhavesh Rangel MD Authorized by: Jethro Dias MD us Jethro Walton MD NEUROLOGY ORDERABLES Fi nal Result * MRI Spine Thoracic and Lumbar WO Contrast (05/17/2024 1:30 PM ADMINISTRATIVE PERSONAL ASSISTANT) Anatomical Region Laterality Modality Spine N/A Magnetic Resonan ce 05/19/2024 10:4 4 AM ADMINISTRATIVE PERSONAL ASSISTANT Impressions 05/19/2024 10:44 AM ADMINISTRATIVE PERSONAL ASSISTANT 1. Mild degenerative changes of the thoracic spine as described above. 2. Mild degenerative changes of the lumbar spine, worse at L5-S1, as described above. 3. Patulous and fluid-filled esophagus. Electronically signed by: Ruperto Pena M.D. Narrative 05/19/2024 10:44 AM ADMINISTRATIVE PERSONAL ASSISTANT EXAMINATION: 1. Magnetic resonance imaging (MRI) of the thoracic spine without contrast 2. Magnetic resonance imaging (MRI) of the lumbar spine without contrast HISTORY: Patient is a 68-year-old female presenting with lower extremity weakness. TECHNIQUE: Multiplanar multi-weighted MRI of the thoracic spine was performed without intravenous contrast using the standard protocol. Multiplanar multi-weighted MRI of the lumbar spine was performed without intravenous contrast using the standard protocol. COMPARISON: CT the chest performed on 02/21/2023. FINDINGS: Intervertebral disc bulging is seen within the visualized cervical spine at C5-C6 and C6-C7. THORACIC SPINE: The alignment of the thoracic spine is normal. Vertebral bodies demonstrate normal signal intensity on all sequences. There are no compression fractures. The spinal cord demonstrates normal signal intensity on all sequences. Intervertebral disc desiccation is noted throughout the thoracic spine. Intervertebral disc bulging is present at T2-T3, T6-T7, T7-T8, T8-T9, T11-T12, T12-L1. Esophagus is again noted to be patulous and contains fluid. The aorta is normal. T6-T7 T7-T8, and T8-T9: Mild symmetric bulging disc with a superimposed central disc protrusion There is no facet arthropathy. There is no neuroforaminal stenosis. There is no spinal canal stenosis. LUMBAR SPINE: Mild retrolisthesis of L2 upon L3 and L3 upon L4 is identified. Schmorl's node is seen within the inferior endplate of L5. Scattered osseous hemangiomas are present within the L2, L3, and L5 vertebral bodies. There are no compression fractures. The conus medullaris terminates at the level of L2. The distal spinal cord signal intensity is normal. Intervertebral disc bulging and desiccation is noted from L1-L2 through L5-S1. Vacuum phenomenon is present at L5-S1. Annual fissures are visible at L4-L5 and L5-S1. Within the right hepatic lobe, a 1.3 cm cyst is present. The aorta is normal. L1-L2: Minimal symmetric bulging disc. There is mild bilateral facet arthropathy. There is no neuroforaminal stenosis. There is no spinal canal stenosis. L2-L3: Mild asymmetric bulging disc directed towards the left. There is mild bilateral ligamentum flavum infolding along with mild bilateral facet arthropathy. There is no neuroforaminal stenosis. There is no spinal canal stenosis. L3-L4: Mild asymmetric bulging disc directed towards the left. There is mild lateral ligamentum flavum infolding along with moderate bilateral facet arthropathy. There is mild left neuroforaminal stenosis. There is no spinal canal stenosis. L4-L5: Mild asymmetric bulging disc directed towards the left. There is mild bilateral ligamentum flavum infolding along with mild right and moderate left facet arthropathy. There is mild left neuroforaminal stenosis. There is no spinal canal stenosis. L5-S1: Mild symmetric bulging disc with superimposed central disc protrusion. There is moderate bilateral facet arthropathy. There is moderate bilateral neuroforaminal stenosis. There is no spinal canal stenosis. Procedure Note Ruperto Pena MD - 05/19/2024 EXAMINATION: 1. Magnetic resonance imaging (MRI) of the thoracic spine without contrast 2. Magnetic resonance imaging (MRI) of the lumbar spine without contrast HISTORY: Patient is a 68-year-old female presenting with lower extremity weakness. TECHNIQUE: Multiplanar multi-weighted MRI of the thoracic spine was performed without intravenous contrast using the standard protocol. Multiplanar multi-weighted MRI of the lumbar spine was performed without intravenous contrast using the standard protocol. COMPARISON: CT the chest performed on 02/21/2023. FINDINGS: Intervertebral disc bulging is seen within the visualized cervical spine at C5-C6 and C6-C7. THORACIC SPINE: The alignment of the thoracic spine is normal. Vertebral bodies demonstrate normal signal intensity on all sequences. There are no compression fractures. The spinal cord demonstrates normal signal intensity on all sequences. Intervertebral disc desiccation is noted throughout the thoracic spine. Intervertebral disc bulging is present at T2-T3, T6-T7, T7-T8, T8-T9, T11-T12, T12-L1. Esophagus is again noted to be patulous and contains fluid. The aorta is normal. T6-T7 T7-T8, and T8-T9: Mild symmetric bulging disc with a superimposed central disc protrusion There is no facet arthropathy. There is no neuroforaminal stenosis. There is no spinal canal stenosis. LUMBAR SPINE: Mild retrolisthesis of L2 upon L3 and L3 upon L4 is identified. Schmorl's node is seen within the inferior endplate of L5. Scattered osseous hemangiomas are present within the L2, L3, and L5 vertebral bodies. There are no compression fractures. The conus medullaris terminates at the level of L2. The distal spinal cord signal intensity is normal. Intervertebral disc bulging and desiccation is noted from L1-L2 through L5-S1. Vacuum phenomenon is present at L5-S1. Annual fissures are visible at L4-L5 and L5-S1. Within the right hepatic lobe, a 1.3 cm cyst is present. The aorta is normal. L1-L2: Minimal symmetric bulging disc. There is mild bilateral facet arthropathy. There is no neuroforaminal stenosis. There is no spinal canal stenosis. L2-L3: Mild asymmetric bulging disc directed towards the left. There is mild bilateral ligamentum flavum infolding along with mild bilateral facet arthropathy. There is no neuroforaminal stenosis. There is no spinal canal stenosis. L3-L4: Mild asymmetric bulging disc directed towards the left. There is mild lateral ligamentum flavum infolding along with moderate bilateral facet arthropathy. There is mild left neuroforaminal stenosis. There is no spinal canal stenosis. L4-L5: Mild asymmetric bulging disc directed towards the left. There is mild bilateral ligamentum flavum infolding along with mild right and moderate left facet arthropathy. There is mild left neuroforaminal stenosis. There is no spinal canal stenosis. L5-S1: Mild symmetric bulging disc with superimposed central disc protrusion. There is moderate bilateral facet arthropathy. There is moderate bilateral neuroforaminal stenosis. There is no spinal canal stenosis. IMPRESSION: 1. Mild degenerative changes of the thoracic spine as described above. 2. Mild degenerative changes of the lumbar spine, worse at L5-S1, as described above. 3. Patulous and fluid-filled esophagus. Electronically signed by: Ruperto Pena M.D. Jethro Walton MD IMG MRI PROCEDURES Melody l Result * Sleep Study Final Report (05/09/2024 11:29 AM ADMINISTRATIVE PERSONAL ASSISTANT) Historical Provider SLEEP CENTER ORDERABLES F inal Result * Hepatitis C antibody (01/01/2020 12:41 PM CDT) Hep C Ab Nonreactive Nonreactive [facility] Comment:Antibodies to HCV no t detected. Does NOT exclude the possibility of recent exposure to HCV. Blood specimen (specimen) 01/01/2020 12:41 PM CDT 01/01/2020 1:01 PM CDT Renetta Browne MD LAB MICROBIOLOGY - GENERAL OR DERABLES Edited Result - Final [facility] Department [place] [address] from Last 3 Months or Most Recently Relevant to Health Maintenance Insurance MEDICARE COMMERCIAL GENERIC MEDICARE COMMERCIAL GENERIC COMMERCIAL GENERIC MEDICARE Advance Directives For more information, please contact: [phone] * Full Code (Latest Code Status on File) Date Activated Date Inactivated Comments 04/29/2020 7:03 PM 05/02/2020 3:15 PM * Full Code Date Activated Date Inactivated Comments 01/15/2020 8:11 AM 01/15/2020 3:10 PM Care Teams Rn [facility] Relationship Specialty Start Date End Date Nicanor Chang MD PCP - General 08/11/16 Nicanor Chang MD 08/11/16 Renetta Browne MD Medical Oncologist/[facility] Psychiatrist Medical Oncology 06/02/20
--- OUTSIDE RECORDS SUMMARY | 2024-06-20 12:25 | XMS_ITS | Referral Summary ---
Author Organization [facility] Address [address] [address] Care Team Providers Care Director [employer]gen [employer] Name Role Phone Nicanor Chang MD Primary Care Provider [phone] Nicanor Chang MD Unavailable [phone] Renetta Browne MD Unavailable [phone] Encounters Date Type Department Care Team Description 06/19/2024 Documentation [facility] Oncology [facility] Floor 6 [place] [address] Dee Dee Bates RN 06/18/2024 10:05 AM CDT - 06/18/2024 11:59 PM CDT Hospital Encounter [facility] [address] [address] Renetta Browne MD CLL (chronic lymphocytic leukemia) (HCC) Discharge Disposition: Discharge to home or self care 06/18/2024 1:00 PM CDT Office Visit [facility] Oncology [address] [facility] [address] [place] [address] Renetta Browne MD CLL (chronic lymphocytic leukemia) (HCC) (Primary Dx) 06/18/2024 12:00 PM CDT Clinical Support [facility] at [facility] [address] [place] [phone] CLL (chronic lymphocytic leukemia) (HCC) 05/22/2024 Telephone [facility] Movement Disorders [address] [facility] [address] [place] [address] May Bello, GABRIELA 05/22/2024 4:40 PM AGRICULTURAL INSPECTOR Telemedicine [facility]) - [facility] ENT [address] [facility] Medical Office Building 2 [address] [place] [address] Reyna Abernathy MD IKER (obstructive sleep apnea) (Primary Dx); Intolerance of continuous positive airway pressure (CPAP) ventilation 05/21/2024 Telephone [facility] Movement Disorders [address] [place] [address] Jody Milner RN 05/21/2024 10:20 AM AGRICULTURAL INSPECTOR Procedure visit [facility] Neurological Testing [address] [facility] 6th [place] [address] [place] [address] Neuropathy; NPH (normal pressure hydrocephalus) ([facility]); Cerebrovascular accident (CVA), unspecified mechanism (HCC); Numbness and tingling 05/20/2024 Orders Only [facility] Movement Disorders [address] [facility] 6th [place] [address] [place] [phone] Jethro Dias MD Movement disorder (Primary Dx) 05/19/2024 Telephone [facility] Movement Disorders [facility] 7th [place] [address] May Bello RN 05/19/2024 Telephone [facility] Movement Disorders [address] [place] [address] Jody Milner RN 05/17/2024 12:34 PM AGRICULTURAL INSPECTOR - 05/17/2024 11:59 PM AGRICULTURAL INSPECTOR Hospital Encounter [facility] [address] [place] [address] Movement disorder; Abnormal gait Discharge Disposition: Discharge to home or self care 05/09/2024 Orders Only [facility] [address] [place] [address] [address] [place] [address] Reynold Mcneal MD 05/09/2024 11:45 AM AGRICULTURAL INSPECTOR Office Visit [facility] Medical [facility] Sleep Medicine at [address] [place] [address] Ida Vieira MD IKER (obstructive sleep apnea) (Primary Dx); Hypersomnia; Obesity, unspecified class, unspecified obesity type, unspecified whether serious comorbidity present 04/04/2024 Orders Only [facility] Movement Disorders [address] [facility] 6th [place] [address] [place] [address] Jethro Dias MD Movement disorder (Primary Dx); Abnormal gait; History of sensory changes; Neuropathy; NPH (normal pressure hydrocephalus) (HCC); Cerebrovascular accident (CVA), unspecified mechanism (HCC); Numbness and tingling 03/24/2024 12:00 PM AGRICULTURAL INSPECTOR Clinical Support [facility] Movement Disorders [address] [place] [phone] Movement disorder 03/24/2024 1:00 PM AGRICULTURAL INSPECTOR Office Visit [facility] Movement Disorders [address] [place] [phone] Jethro Dias MD Abnormal gait (Primary Dx) from Last 3 Months Allergies No known active allergies Medications aspirin [...] (10 mg total) by mouth nightly 01/02/20 09 Active betamethasone, augmented, (DIPROLENE) 0.05 % lotion [...] Monitor Assessment & Plan (03/09/2021 10:37 AM AGRICULTURAL INSPECTOR): Status-post Extraction Cataract - Phacoemulsification And Lens [...] eye. Assessment & Plan (02/24/2021 3:05 PM AGRICULTURAL INSPECTOR): Post op day 1s/p Extraction Cataract - [...] 05/01/2020 Assessment & Plan (05/02/2020 8:38 AM AGRICULTURAL INSPECTOR): 2/2 chemotherapy, CLL. -filgrastim per Onc recs -ANC 1300 Diarrhea 04/30/2020 Assessment & Plan (05/01/2020 10:23 AM AGRICULTURAL INSPECTOR): She presents with 2 week history of frequent loose stools, likely related to chemotherapy. Recently ramped up venetoclax about 3 weeks prior. Infectious studies negative thus far including c.diff. -loperamide scheduled, lomotil PRN Assessment & Plan (04/30/2020 12:04 AM AGRICULTURAL INSPECTOR): She presents with 2 week history of frequent loose stools, likely related to chemotherapy. Recently ramped up venetoclax about 3 weeks prior Will also send stool infectious studies including C diff Hypokalemia present, will replace IV to give additional volume Failure to thrive in adult 04/30/2020 Assessment & Plan (04/30/2020 10:06 AM AGRICULTURAL INSPECTOR): Describes very poor PO intake of at least two week duration, likely related to chemotherapy RD consult Consider calorie count Ensure TID Assessment & Plan (04/30/2020 12:06 AM AGRICULTURAL INSPECTOR): Describes very poor PO intake of at least two week duration, likely related to chemotherapy RD consult Consider calorie count Ensure TID Essential hypertension 04/29/2020 Assessment & Plan (04/30/2020 12:02 AM AGRICULTURAL INSPECTOR): Continue metoprolol, hctz, spironolactone Assessment & Plan (05/02/2020 8:38 AM AGRICULTURAL INSPECTOR): Continue eliot, metoprolol -hold HCTZ in setting of diarrhea and intermittent hypotension Depression 04/29/2020 Assessment & Plan (04/30/2020 12:04 AM AGRICULTURAL INSPECTOR): Continue lexapro, nortriptyline Assessment & Plan (04/29/2020 8:03 PM AGRICULTURAL INSPECTOR): Continue Nortriptyline, lexapro CLL (chronic lymphocytic leukemia) 09/13/2017 Assessment & Plan (04/30/2020 12:05 AM AGRICULTURAL INSPECTOR): Rivas stage 1 CLL (lymphocytosis, diffuse neck lymphadenopathy) currently on C4 of obinatuzumab, ibrutinib and venetoclax OI ppx with acyclovir and bactrim Allopurinol for hyperuricemia Consult oncology in AM Assessment & Plan (04/30/2020 10:05 AM AGRICULTURAL INSPECTOR): Rivas stage 1 CLL (lymphocytosis, diffuse neck [...] 06/28/2018 Overview (07/19/2017): Description: bilateral sinus pain Immunizations Immunization Administration Dates Next Due Influenza, Quadrivalent, Hig h Dose, Preservative Free, Intrr 12/24/2020,12/29/2019 Influenza, Quadrivalent, Split, Intramuscular Influenza, Quadrivalent, Spl it, Preservative Free, Intramuscular 01/07/2019,04/05/2018 Influenza, Trivalent, IM (MDV) 12/16/2012,2011 Influenza, Trivalent, Preservative Free, Intramu scular 01/09/2016 Moderna SARS-CoV-2 Monovalent Vaccination (12+ Y RS) 01/04/2021,07/23/2020 Pneumococcal Conjugate PCV 13 12/29/2019 Social History Tobacco Use Types Packs/Day Years [...] on file Legal Sex Female 7:02 AM AGRICULTURAL INSPECTOR Gender Identity Not on file Sexual Orientation Not on file Last Filed [...] 06/18/2024 1:09 PM CDT Plan of Treatment Not on file Medical Devices Implanted Type Area Monitoring And Evaluation Advisor Device Identifier Shelf Expiration Date Model / Serial / Lot [employer] CHOBOLABS [id number] - [id number] - [id number] Implanted:Qty: 1 on 01/13/2021 by Chanelle Anthony MD at [facility] Lens Left: Eye [employer] 07/08/2023 [id number] / [id number] / Angio Dynamics [id number] Xcela 8fr 1.6mm 1 Lumen Power Injectable Attach Catheter Fill - [id number] Implanted:Qty: 1 on 01/15/2020 at [facility] [employer] 09/21/2024 [id number] / / [id number] [employer] [id number] - [id number] - [id number] Implanted:Qty: 1 on 02/24/2021 by Chanelle Anthony MD at [facility] [employer] 11/07/2023 [id number] / [id number] / Bard Peripheral Vascular Ultraclip Bard 17ga 10cm 2 Trigger Permanent Ultrasound [id number] - [id number] Implanted:Qty: 1 on 08/23/2022 at [facility] Left: Breast [employer] [id number] / / Procedures Procedure Name Priority Date/Time [...] AM CDT EMG/NCV Routine 05/21/2024 10:16 AM AGRICULTURAL INSPECTOR Neuropathy NPH (normal pressure hydrocephalus) (HCC) Cerebrovascular accident (CVA), unspecified mechanism (HCC) Numbness and tingling MRI SPINE THORACIC LUMBAR WO CONTRAST Schedule Routine, Read Routine (OP Routine) 05/17/2024 1:30 PM AGRICULTURAL INSPECTOR Movement disorder Abnormal gait SLEEP STUDY FINAL REPORT Routine 05/09/2024 11:29 AM AGRICULTURAL INSPECTOR HEPATITIS C ANTIBODY Routine 01/01/2020 12:41 PM [...] was last reviewed 2021. Testing performed by: [facility], [address] [place] [address] Blood 06/18/2024 12:0 5 PM CDT 06/18/2024 12:17 PM CDT us Jessie Bone MILL ROLL OPERATOR LAB BLOOD ORDERABLES Final Result [facility] [address] Department [place] [address] * Differential, auto (06/18/2024 12:05 PM CDT) Neutrophil abs 3.6 1.5 - 6.5 K/cumm Comment:Testing performed by : [facility] 2, [address] [place] [address] Imm gran abs 0.0 0.0 - 0.1 K/cumm CERNER [facility] Comment:Testing performed by : [facility] 2, [address] [place] [address] Lymphocyte abs 1.5 0.8 - 3.3 K/cumm CERNER [facility] Comment:Testing performed by : [facility] 2, [address] [place] [address] Monocyte abs 0.4 0.2 - 0.8 K/cumm CERNER [facility] Comment:Testing performed by : [facility] 2, [address] [place] [address] Eosinophil abs 0.2 0.0 - 0.5 K/cumm CERNER [facility] Comment:Testing performed by : [facility] 2, [address] [place] [address] Basophil abs 0.0 0.0 - 0.1 K/cumm CERNER [facility] Comment:Testing performed by : [facility] 2, [address] [place] [address] Neutrophil pct 63.6 % CERNER [facility] Comment: Interpretive Data Percent cell count reference ranges are not reported, since discordance with absolute values may lead to misinterpretation of CBC data. Current Interpretive Data was last revised on 2017. Testing performed by: [facility] 2, [address] [place] [address] Imm gran pct 0.4 % CERNER [facility] Comment: Interpretive Data Percent cell count reference ranges are not reported, since discordance with absolute values may lead to misinterpretation of CBC data. Current Interpretive Data was last revised on 2017. Testing performed by: [facility], [facility], [address] [place] [place] [address] Lymphocyte pct 25.8 % CERNER [facility] Comment: Interpretive Data Percent cell count reference ranges are not reported, since discordance with absolute values may lead to misinterpretation of CBC data. Current Interpretive Data was last revised on 2017. Testing performed by: [facility], [facility], [address] [place] [place] [address] Monocyte pct 6.8 % C[facility]ER [facility] Comment: Interpretive Data Percent cell count reference ranges are not reported, since discordance with absolute values may lead to misinterpretation of CBC data. Current Interpretive Data was last revised on 2017. Testing performed by: [facility], [facility], [address] [place] [address] Eosinophil pct 3.0 % CERNER [facility] Comment: Interpretive Data Percent cell count reference ranges are not reported, since discordance with absolute values may lead to misinterpretation of CBC data. Current Interpretive Data was last revised on 2017. Testing performed by: [facility], [facility], [address] [place] [address] Basophil pct 0.4 % CERNER [facility] Comment: Interpretive Data Percent cell count reference ranges are not reported, since discordance with absolute values may lead to misinterpretation of CBC data. Current Interpretive Data was last revised on 2017. Testing performed by: [facility], [facility], [address] [place] [place] [address] Blood 06/18/2024 12:0 5 PM CDT 06/18/2024 12:08 PM CDT Jessie Bone NP LAB BLOOD ORDERABLES Final Result [facility] [address] [facility]. Department [place] [address] * CBC with auto differential (06/18/2024 12:05 PM CDT) WBC 5.7 3.8 - 9.9 K/cumm Comment:Testing performed by : [place] [address], [address] [place] [address] Hgb 12.6 11.9 - 15.5 g/dL FANNY REDMONDW[facility] Comment:Testing performed by : [place] [address], [address] [place] [address] Hct 38.6 35.6 - 45.5 % FANNY REDMONDCH Comment:Testing performed by : [place] [address], [address] [place] [address] Plt 172 150 - 400 K/cumm FANNY REDMONDCH Comment:Testing performed by : [place] [address], [address] [place] [address] MPV 9.5 9.1 - 12.3 fL [facility] Comment:Testing performed by : [place] [address], [address] [place] [address] RBC 4.05 3.90 - 5.20 M/cumm FANNY REDMONDCH Comment:Testing performed by : [place] [address], [address] [place] [address] MCV 95 81 - 96 fL [facility] Comment:Testing performed by : [place] [address], [address] [place] [address] MCH 31.1 27.1 - 33.3 pg CERWESTLEY REDMONDWCH Comment:Testing performed by : [place] [address], [address] [place] [address] MCHC 32.6 32.3 - 35.7 g/dL [facility] Comment:Testing performed by : [place] [address], [address] [place] [address] RDW CV 13.1 11.1 - 14.9 % [facility]NY [facility]A Comment:Testing performed by : [facility], [facility], [address] [place] [address] RDW SD 46.4 35.7 - 48.1 fL [facility] Comment:Testing performed by : [facility], [facility], [address] [place] [place] [address] Blood 06/18/2024 12:0 5 PM CDT 06/18/2024 12:08 PM CDT Jessie Bone NP LAB BLOOD ORDERABLES Final Result Performing Organization Address [facility] Co de Phone Number [facility] [address] [facility] [facility] [place] [address] * Lactate dehydrogenase (LD) (06/18/2024 12:05 PM CDT) Lactate dehydrogenase (LDH) 181 100 - 250 Units/L Comment:Testing performed by : [facility], [address] [place] [address] Blood 06/18/2024 12:0 5 PM CDT 06/18/2024 12:17 PM CDT Jessie Bone NP LAB BLOOD ORDERABLES Final Result Performing Organization Address City/[facility]/ZIP Co de Phone Number [facility] [address] [facility] [place] [address] * Comprehensive metabolic panel (06/18/2024 12:05 PM CDT) Sodium 141 135 - 145 mmol/L Comment:Testing performed by : [facility], [address], [place] [address] Potassium, pl 3.8 3.3 - 4.9 mmol/L FANNY AVILA Comment:Testing performed by : [facility], [address], [place] [address] Chloride 105 97 - 110 mmol/L CERNER [facility] Comment:Testing performed by : [facility], [address], [place] [address] CO2 25 22 - 32 mmol/L CERNER [facility] Comment:Testing performed by : [facility], [address], [place] [address] Anion gap 11 2 - 15 mmol/L C[facility]ER [facility] Comment:Testing performed by : [facility], [address], [place] [address] BUN 13 6 - 25 mg/dL CERNER [facility] Comment:Testing performed by : [facility], [address], [place] [address] Creatinine 1.00 0.60 - 1.10 mg/dL CERNER [facility] Comment:Testing performed by : [facility], [address], [place] [address] Glucose 141 70 - 199 mg/dL CERNER [...] was last revised 2022. Testing performed by: [facility], [address], [place] [address] Calcium 9.3 8.5 - 10.3 mg/dL CERNER [facility] Comment:Testing performed by : [facility], [address], [place] [address] Bilirubin, total 0.3 0.1 - 1.2 mg/dL CERNER [facility] Comment:Testing performed by : [facility], [address], [place] [address] Protein, pl 6.5 6.5 - 8.5 g/dL C[facility]ER [facility] Comment:Testing performed by : [facility], [address], [place] [address] Albumin 4.6 3.5 - 5.0 g/dL C[facility]ER [facility] Comment:Testing performed by : [facility], [address], [place] [address] Alk phos 115 40 - 130 Units/L CERNER [facility] Comment:Testing performed by : [facility], [address], [place] [address] ALT 16 7 - 45 Units/L C[facility]ER [facility] Comment:Testing performed by : [facility], [address], [place] [address] AST 16 10 - 45 Units/L CERNER [facility] Comment:Testing performed by : [facility], [address], [place] [address] Blood 06/18/2024 12:0 5 PM CDT 06/18/2024 12:17 PM CDT us Jessie Bone NP LAB BLOOD ORDERABLES Final Result [facility] REYNAGACH [address] Department [place] [address] * CT chest abdomen pelvis with contrast [...] are normal. The limited view of the [place] is unremarkable. Bilateral lens replacement [...] findings Procedure Note Ruperto Pena MD - 06/18/2024 EXAMINATION: CT of the neck with contrast [...] are normal. The limited view of the [place] is unremarkable. Bilateral lens replacement [...] 0.6 - 1.3 mg/dL POC Device Number [id number] [facility] POC Performer [id number] FANNY REYNAGA Blood 06/18/2024 10:1 6 AM CDT 06/18/2024 10:16 AM CDT Renetta Browne MD LAB BLOOD ORDERABLES Final Re sult [facility] [address] [facility]. Department [place] [address] * EMG/NCV (05/21/2024 10:16 AM AGRICULTURAL INSPECTOR) Anatomical Region Laterality Modality Other Narrative 05/21/2024 10:16 AM AGRICULTURAL INSPECTOR Bhavesh Rangel MD 05/21/2024 11:13 AM EMG/NCV - Date/Time: 05/21/2024 10:16 AM Performed by: Bhavesh Rangel MD Authorized by: Jethro Dias MD Jethro Walton MD NEUROLOGY ORDERABLES Fi nal Result * MRI Spine Thoracic and Lumbar WO Contrast (05/17/2024 1:30 PM AGRICULTURAL INSPECTOR) Anatomical Region Laterality Modality Spine N/A Magnetic Resonan ce 05/19/2024 10:4 4 AM AGRICULTURAL INSPECTOR Impressions 05/19/2024 10:44 AM AGRICULTURAL INSPECTOR 1. Mild degenerative changes of the thoracic spine as described above. 2. Mild degenerative changes of the lumbar spine, worse at L5-S1, as described above. 3. Patulous and fluid-filled esophagus. Electronically signed by: Ruperto Pena M.D. Narrative 05/19/2024 10:44 AM AGRICULTURAL INSPECTOR EXAMINATION: 1. Magnetic resonance imaging (MRI) of [...] Sleep Study Final Report (05/09/2024 11:29 AM AGRICULTURAL INSPECTOR) Historical Provider SLEEP CENTER ORDERABLES F inal Result * Hepatitis C antibody (01/01/2020 12:41 PM CDT) Hep C Ab Nonreactive Nonreactive [facility] Comment:Antibodies to HCV no t detected. Does NOT exclude the possibility of recent exposure to HCV. Blood specimen (specimen) 01/01/2020 12:41 PM CDT 01/01/2020 1:01 PM CDT Renetta Browne MD LAB MICROBIOLOGY - GENERAL OR DERABLES Edited Result - Final [facility] Department [place] [address] from Last 3 Months or Most Recently Relevant to Health Maintenance Insurance MEDICARE COMMERCIAL GENERIC MEDICARE COMMERCIAL GENERIC COMMERCIAL GENERIC MEDICARE Advance Directives For more information, please contact: [phone] * Full Code (Latest Code Status on File) Date Activated Date Inactivated Comments 04/29/2020 7:03 PM 05/02/2020 3:15 PM * Full Code Date Activated Date Inactivated Comments 01/15/2020 8:11 AM 01/15/2020 3:10 PM Care Teams Director [employer]gen Storage Engineering Relationship Specialty Start Date End Date Nicanor Chang MD PCP - General 08/11/16 Nicanor Chang MD 08/11/16 Renetta Browne MD Medical Oncologist/Business Continuity Director Medical Oncology 06/02/20
--- OUTSIDE RECORDS SUMMARY | 2024-06-20 12:25 | XMS_ITS | Encounter Summary ---
Author Organization [facility] Address [address] [place] [address] Care Team Providers Care Historical Archeologist Name Role Phone Nicanor Chang MD Primary Care Provider [phone] Nicanor Chang MD Unavailable [phone] Renetta Browne MD Unavailable [phone] Reason for Referral * MRI/CAT/PET Scan (Routine) - Closed Specialty Diagnoses / Procedures Referred By Contac t Referred To Contact Radiology Diagnoses CLL (chronic lymphocytic leukemia) (HCC) Procedures CT chest abdomen pelvis with contrast Renetta Browne MD [address] [facility] [address] [place] [address] Phone: tel: fax: [address] [phone] Referral ID Status Reason Start Date Expiration Date Visits Re quested Visits Authorized [id number] Closed 06/09/2024 07/09/2025 1 1 * MRI/CAT/PET Scan (Routine) - Closed Specialty Diagnoses / Procedures Referred By Contac t Referred To Contact Radiology Diagnoses CLL (chronic lymphocytic leukemia) (HCC) Procedures CT Neck Soft Tissue W Contrast Renetta Browne MD [address] [address] Phone: tel: fax: [address] [phone] Referral ID Status Reason Start Date Expiration Date Visits Re quested Visits Authorized [id number] Closed 06/09/2024 07/09/2025 1 1 Reason for Visit * MRI/CAT/PET Scan (Routine) - Closed Specialty Diagnoses / Procedures Referred By Contac t Referred To Contact Radiology Diagnoses CLL (chronic lymphocytic leukemia) (HCC) Procedures CT chest abdomen pelvis with contrast Renetta Browne MD [address] [address] Phone: tel: fax: [address] [phone] Referral ID Status Reason Start Date Expiration Date Visits Re quested Visits Authorized [id number] Closed 06/09/2024 07/09/2025 1 1 Encounter Details Date Type Department Care Team (Latest Contact Info) Description 06/18/2024 10:05 AM CDT - 06/18/2024 11:59 PM CDT Hospital Encounter [facility] [id number] [place] [address] Renetta Browne MD [address] [facility] [address] [place] [id number] CLL (chronic lymphocytic leukemia) (HCC) Discharge Disposition: Discharge to home or self care Social History Tobacco Use Types Packs/Day Years [...] on file Legal Sex Female 7:02 AM [employer] Gender Identity Not on file Sexual Orientation Not on file documented as of this encounter Medications at Time of Discharge acetaminophen-codein e (TYLENOL with CODEINE #3) 300-30 mg per tablet Take 1 tablet by mouth 2 (two) times a day as needed 2 albuterol HFA (PROVENTIL HFA,VENTOLIN HFA,PROAIR HFA) 90 mcg/actuation inhaler Inhale 2 puffs every 4 (four) hours as needed for wheezing 9 aspirin 81 mg enteric coated tabletIndications:Ce rebral Thromboembolism Prevention Take 1 tablet (81 mg total) by mouth daily before breakfast betamethasone, augmented, (DIPROLENE) 0.05 % lotion Apply 1 application topically 2 (two) times a day as needed (itching) 9 calcium carbonate-vitamin D3 1,500 mg (600mg elemental) -800 unit per tabletIndications:Hy pocalcemia Prevention Take 1 tablet by mouth daily before breakfast celecoxib (CeleBREX) 100 mg capsuleIndications:O steoarthritis Take 1 capsule (100 mg total) by mouth 3 (three) times a day cyclobenzaprine (FLEXERIL) 10 mg tablet TAKE 1/2 -1 TABLET BY MOUTH EVERY 8 HOURS NEEDED 2 ibuprofen (ADVIL,MOTRIN) 200 mg tab/cap Take 2 tablet/capsule (400 mg total) by mouth every 6 (six) hours as needed for pain lidocaine-prilocaine (lidocaine-prilocain e) cream Apply topically as needed for pain 30 g 3 0 meclizine (ANTIVERT) 25 mg tablet Take 1 tablet (25 mg total) by mouth 3 (three) times a day as needed for dizziness 30 tablet 3 3 montelukast (SINGULAIR) 10 mg tabletIndications:Se asonal Allergic Rhinitis Take 1 tablet (10 mg total) by mouth nightly 9 nortriptyline (PAMELOR) 25 mg capsuleIndications:m igraines Take 2 capsules (50 mg total) by mouth nightly 9 olopatadine (PATADAY) 0.2 % ophthalmic solutionIndications: Allergic Conjunctivitis Administer 1 drop into both eyes nightly polyethylene glycol (MIRALAX) 17 gram/dose powderIndications:co nstipation Take 17 g by mouth daily before breakfast pravastatin (PRAVACHOL) 20 mg tablet Take 1 tablet (20 mg total) by mouth nightly 4 propranolol XL (INNOPRAN XL) 120 mg 24 hr capsuleIndications:M igraine Prevention,hypertens ion Take 1 capsule (120 mg total) by mouth nightly 1 SUMAtriptan (IMITREX) 100 mg tabletIndications:Mi graine TAKE 1 TABLET FOR MIGRAINE RELIEF. MAY REPEAT 2 HOURS LATER. MAXIMUM 200MG/DAY. 8 documented as of this encounter Discharge Disposition Disposition Code Departure Means Destination Discharge to home or self care documented in this encounter Plan of Treatment Not on file documented as of this encounter Procedures Procedure Name Priority Date/Time Associated Diagnosis Comments CT CHEST ABDOMEN PELVIS W CONTRAST Schedule ANASTASIYA, Read ANASTASIYA (Appt Today, Awaiting Results) 06/18/2024 10:26 AM CDT CLL (chronic lymphocytic leukemia) (HCC) CT SOFT TISSUE NECK W CONTRAST Schedule ANASTASIYA, Read ANASTASIYA (Appt Today, Awaiting Results) 06/18/2024 10:26 AM CDT CLL (chronic lymphocytic leukemia) (HCC) POC ISTAT Routine 06/18/2024 10:16 AM CDT documented in this encounter Results * CT chest abdomen pelvis with contrast [...] by: Arnie Anthony M.D. Renetta Browne MD IMG CT PROCEDURES Final Resul t * CT [...] are normal. The limited view of the [place] is unremarkable. Bilateral lens replacement [...] are normal. The limited view of the [place] is unremarkable. Bilateral lens replacement [...] 0.6 - 1.3 mg/dL POC Device Number [id number] FANNY AVILA POC Performer [id number] FANNY AVILA Blood 06/18/2024 10:1 6 AM CDT 06/18/2024 10:16 AM CDT Renetta Browne MD LAB BLOOD ORDERABLES Final Re sult [facility] [address] [facility]. [place] [address] documented in this encounter Visit Diagnoses Diagnosis CLL (chronic lymphocytic leukemia) (HCC) Chronic lymphoid leukemia, without mention of having achieved remission documented in this encounter Administered Medications Inactive Administered Medications - up to 3 most recent administrations Medication Order MAR Action Action Date Dose Rate Site heparin 100 unit/mL injection As needed, Starting on Sun06/18/24 at 1028, Intra-Op, Indications: Maintain Patency of Indwelling Vascular CatheterIndications:Maintain Patency of Indwelling Vascular Catheter Given 06/18/2024 10:28 AM CDT 5 mL ioversoL (OPTIRAY 350) injection 0.01-500 mL 0.01-500 mL, intravenous, Once in imaging, contrast, Starting on Sun06/18/24 at 1005, For 1 dose Contrast Given 06/18/2024 10:27 AM CDT 135 mL documented in this encounter Care Teams Historical Archeologist Relationship Specialty Start Date End Date Nicanor Chang MD PCP - General 08/11/16 Nicanor Chang MD 08/11/16 Renetta Browne MD Medical Oncologist/[employer] Medical Oncology 06/02/20 documented as of this encounter
== END 2024-06-20 12:03 | disposition home or self-care (01) ==
LOC: CHSIMG 12:04
PROVIDERS: PCP Internal Medicine; Visit Provider Internal Medicine
DX: Z12.31 Encounter for screening mammogram for malignant neoplasm of breast (principal)
CPT/HCPCS: 77063; 77067

== ENCOUNTER 2025-02-25 14:36 | Outpatient (CLI) | payer MEDICARE, SELFPAY ==
--- NOTE | 2025-02-25 | CONSULT_PTH ---
PATIENT: Nohemi Cornelius LOC: [facility]#:[id number] AGE/SX: 69/F ROOM: RE02/25/[address]: Nicanor Chang MD : 1955 BED: DIS: 02/25/2025 SPEC #: [id number] RECD: 02/25/25 14:54 STATUS: AMY REQ #: [id number] JAMIE: 02/25/25 00:[address]: Nicanor Chang DEPT: [facility] Consult RECD BY: Irlanda Maddox MLT, ([facility]) Tissues: A - Peripheral Smear Procedures: Hematology Consult
[2025-02-25 15:04] LABS: Hematocrit 36.7 % (35.0-42.0); Hemoglobin 11.8 g/dL (11.7-13.8); Immature Granulocyte Percent A 0.4 % (0.0-0.0); Lymphocytes Absolute Auto 1.46 K/mm3 (1.10-4.50); Mean Corpuscular HGB Conc 32.2 g/dL (32-36); Mean Corpuscular Hemoglobin 30.4 pg (27.0-31.0); Mean Corpuscular Volume 94.6 fL (78.0-102.0); Nucleated Red Blood Cells Absolute Auto 0.00 K/mm3 (0.00-0.00); Nucleated Red Blood Cells Perc 0.0 % (0-0.0); Platelet Count Result 184 K/mm3 (150-420); Red Blood Count 3.88 M/mm3 (4.20-5.40); White Blood Count 4.8 K/mm3 (4.8-10.8)
[2025-02-25 15:08] LABS: Add Urine Microscopic? NO; Appearance Urine Clear (Clear); Glucose Urine UA Negative (Negative); Leukocyte Esterase Ur Negative LEU/UL (Negative); Nitrate Urine Negative (Negative); Specific Grav Ur 1.025 (1.010-1.020)
[2025-02-25 15:32] LABS: Alanine Aminotransferase 22 U/L (6-35); Albumin Level 4.4 g/dL (3.5-5.1); Alkaline Phosphatase 83 U/L (38-126); Anion Gap 10 mmol/L (4-12); Aspartate Amino Transferase 26 U/L (14-36); Bilirubin,Total 0.2 mg/dL (0.2-1.3); Blood Urea Nitrogen 19 mg/dL (7-17); CRP < 0.5 mg/dL (<1.0); Calcium 9.6 mg/dL (8.4-10.2); Carbon Dioxide 31 mmol/L (22-30); Chloride 102 mmol/L (98-107); Estimated Glomerular Filt Rate 56; Glucose 115 mg/dL (65-110); Osmolality Calculated 299 mOsm/kg (285-295); Potassium 4.0 mmol/L (3.4-5.0); Sodium 143 mmol/L (137-145); Total Protein 6.1 g/dL (6.3-8.2)
== END 2025-02-25 14:37 | disposition home or self-care (01) ==
LOC: CHSLAB 14:39
PROVIDERS: PCP Internal Medicine; Visit Provider Internal Medicine
DX: C91.10 Chronic lymphocytic leukemia of B-cell type not having achieved remission (principal); G89.29 Other chronic pain
CPT/HCPCS: 36415; 80053; 81003; 83615; 85025; 86140